=== PATIENT | female | born 1930 | race Caucasian/White ===

== ENCOUNTER 2017-03-15 16:32 | Inpatient (IN) ==
--- NOTE | 2017-03-15 17:19 | XRay Report ---
XR chest 1V portable Indication: Fall Comparison: Chest x-ray dated November 16, 2016 Technique: Single frontal view of the chest. Findings: The cardiomediastinal silhouette is stable in configuration. Heart remains borderline prominent. Chronic change of the lungs without focal consolidation, pleural effusion, or pneumothorax. Visualized osseous and surrounding soft tissue structures appear grossly unchanged. Diffuse osteopenia and vertebroplasty change of a mid thoracic vertebral body. Cervical fusion hardware partially visualized. IMPRESSION: Stable chest x-ray without acute cardiopulmonary process demonstrated. PROCEDURE INTERPRETED AT [facility] DEPARTMENT OF RADIOLOGY Final Report Signed by: Dr Esau Johnson
--- NOTE | 2017-03-15 17:21 | XRay Report ---
XR hip 2v w pelvis LT Indication: Fall, left hip pain Comparison: None Technique: Single frontal view of the pelvis as well as frontal and lateral views of the left hip Findings: Right hip prosthesis. Diffuse osteopenia. Degenerative change of the lower lumbar spine and left SI joint. Acute fracture involving the left femoral neck with foreshortening and varus deformity. Bowel gas obscures visualization of the sacrum. IMPRESSION: Acute fracture involving the left femoral neck with foreshortening and varus deformity. PROCEDURE INTERPRETED AT [facility] DEPARTMENT OF RADIOLOGY Final Report Signed by: Dr Esau Johnson
[2017-03-15 17:27] LABS: Basophils % 0.1 % (0.0-0.8); Eosinophils # 0.2 10*3/uL (0.0-0.87); Eosinophils % 1.3 % (0.00-10.9); Hematocrit 44.8 VOL% (35.7-47.0); Immature Granulocytes % 0.7 %; Lymphocytes # 2.4 10*3/uL (1.4-4.0); Lymphocytes % 15.7 % (21.3-54.2); Mean Corpuscular HGB Conc 33.5 GM/DL (32-36); Mean Corpuscular Hemoglobin 29 PG (27-34); Mean Corpuscular Volume 86.8 FL (87-102); Mean Platelet Volume 9.4 FL (9.6-12.0); Monocytes # 0.9 10*3/uL (0.11-0.8); Monocytes % 5.7 % (1.7-12.7); Neutrophils # 11.5 10*3/uL (1.4-7.4); Neutrophils % 76.5 % (38.7-73.9); Platelet Count 194 T/CUMM (130-400); Red Blood Count 5.16 MC/CUMM (3.8-5.5); Red Cell Distribution Width 13.4 % (9.3-17.3)
--- NOTE | 2017-03-15 17:28 | Emergency Department Note ---
João Rosenthal Mantricia, am scribing for, and in the presence of, Aashish Reyes MD 17:03. IEric Phillip K, MD, personally performed the services described in this documentation, ascribed by Jayce Moyer in my presence, and it is both accurate and complete [id number] . Arrival - Arrival Chief Complaint: Fall Stated Complaint: fall ED Nursing Triage Note: Brought in per EMS from home s/p fall x 2 today. c/o left hip pain. Obvious shortening and rotation noted left leg. +pedal pulse left foot. Skin warm/dry to touch. Mode of Arrival: Stretcher Limitations: No Limitations Source: Patient - History of Present Illness HPI Narrative: Pt is an 86 y/o white female arriving to ED by EMS with c/o left hip pain s/p falls that happened today. Family states that pt woke up from a nap dizzy and fell at home. While trying to get pt to ED, she fell again. Family states that pt did not hit her head or LOC. Pt has a PMHx of dementia and Alzheimer's and has had a right partial hip replacement 3 months ago. She also has been experiencing frequent urination every 30 minutes. Pt reports that "this is the worst she's hurt before." She nor family reports no other complaints to ED. Onset (ago): day(s) Date of Last Menstrual Period: PM Allergies/Adverse Reactions: Allergies Allergy/AdvReac Type Severity Reaction Status Date / Time Sulfa (Sulfonamide Allergy ITCHING Verified 03/15/17 16:53 Antibiotics) codeine AdvReac Agitated Verified 03/15/17 16:53 Home Medications: Home Medications Medication Instructions Recorded Confirmed Type Fludrocortisone [Florinef] 0.1 mg PO DAILY 04/26/16 11/09/16 History Levothyroxine Tab [Synthroid Tab] 50 mcg PO DAILY 04/26/16 11/09/16 History Midodrine [Proamatine] 5 mg PO DAILY 04/26/16 11/09/16 History Potassium Chloride [Klor-Con] 20 meq PO TID 04/26/16 11/09/16 History Travoprost 0.004% Oph Soln 1 drop BOTH EYES BEDTIME 04/26/16 11/09/16 History [Travatan Z] OLANZapine TAB [ZyPREXA Tab] 5 mg PO BEDTIME #60 tablet 05/09/16 11/09/16 Rx Albuterol Sulfate [Proair HFA] 2 puffs INH Q6HR PRN 11/09/16 11/09/16 History Brimonidine/Timolol Oph Soln 1 drop RIGHT EYE RT Q12H 11/09/16 11/09/16 History [Combigan] Cyproheptadine Tab [Periactin Tab] 4 mg PO TID 11/09/16 11/09/16 History Donepezil [Aricept] 5 mg PO BEDTIME 11/09/16 11/09/16 History Gabapentin 100 mg PO BID 11/09/16 11/09/16 History cycloSPORINE OPH EMUL [Restasis] 1 drop BOTH EYES RT Q12H 11/09/16 11/09/16 History Acetaminophen Tab [Tylenol Tab] 325 mg PO Q4H PRN #0 tablet 11/17/16 Rx Docusate Sodium Cap [Colace Cap] 100 mg PO BID PRN #0 capsule 11/17/16 Rx Fondaparinux [Arixtra] 2.5 mg SUBCUT Q24H #7 syringe 11/17/16 Rx Levofloxacin Tab [Levaquin Tab] 750 mg PO DAILY #7 tablet 11/17/16 Rx Metoprolol Tartrate Tab [Lopressor 50 mg PO BID #60 tablet 11/17/16 Rx Tab] Pantoprazole Tab [Protonix Tab] 40 mg PO DAILY #30 tablet 11/17/16 Rx amLODIPine [Norvasc] 2.5 mg PO DAILY #30 tablet 11/17/16 Rx Review of System - Review of System 12 point system: reviewed and no additional remarkable complaints except as stated - Review of System Constitutional: Absent: chills, diaphoresis Eyes: Absent: discharge, pain Head/Ears/Nose/Throat: Absent: earache, epistaxis Respiratory: Absent: cough, respiratory distress, wheezing Cardiovascular: Absent: chest pain, palpitations Gastrointestinal: Absent: abdominal pain, nausea, vomiting, diarrhea Genitourinary female: Present: frequency. Absent: abnormal menses, dysuria Musculoskeletal: Present: other (left hip pain s/p 2 falls). Absent: arm pain, back pain, leg pain, neck pain Skin: Absent: rash, lesions Neurological: Present: weakness. Absent: headache Medical,Surgical,& Family Hx - Medical History Cardio: History of: Hypertension Psychological: History of: Behavior Problems, Depression, Psychiatric Problems ( visual hallucinations aeb seeing people coming in her house and talking to) No history of: Violent Behavior Neurology: History of: Dementia, TIA Endocrine: History of: Dyslipidemia Genitourinary: History of: Recurring Urinary Tract Infections Gastrointestinal: History of: GERD - Surgical History Orthopedic Surgeries: Surgical HX of;: Total Hip Replacement (right), Total Knee Replacement - Social History Smoking Status: Never smoker Frequency of Alcohol Use: None Type of Drug Use: None Exam Vital Signs: Vital Signs Temperature 98.4 F 03/15/17 16:32 Pulse Rate 87 03/15/17 16:32 Respiratory Rate 18 03/15/17 16:32 Blood Pressure 212/132 03/15/17 16:32 O2 Sat by Pulse Oximetry 97 03/15/17 16:32 - General General appearance: alert, in no apparent distress - Head Head exam: Present: atraumatic, normocephalic, normal inspection - Eye Eye exam: Present: normal appearance, PERRL, EOMI - ENT ENT exam: Present: normal exam, normal oropharynx, mucous membranes moist, TM's normal bilaterally, normal external ear exam - Neck Neck exam: Present: normal inspection, full ROM, trachea midline. Absent: tenderness - Chest Chest inspection: Present: normal inspection, symmetric chest wall rise. Absent : tenderness - Respiratory Respiratory exam: Present: normal lung sounds bilaterally - Cardiovascular Cardiovascular exam: Present: regular rate, normal rhythm, normal heart sounds - Abdominal Exam Abdominal exam: Present: soft, normal bowel sounds. Absent: distention, tenderness, guarding, rebound - Expanded Lower Left Lower Hip/Pelvis exam: Present: tenderness (TTP) Lower leg exam: Present: other (short in radiation) - Back Exam Back exam: Present: normal inspection, full ROM. Absent: tenderness - Neurological Exam Neurological exam: Present: alert, oriented X3, CN II-XII intact, normal gait, reflexes normal - Psychiatric Psychiatric exam: Present: normal affect, normal mood - Skin Skin exam: Present: warm, dry, intact, normal color Course Course Narrative: Patient discussed with the hospitalist. Patient also discussed with Dr. Horn who is on-call for orthopedic. Disposition Clinical Impression: Subcapital fracture of neck of left femur, Dementia Case discussed with: patient, patient's family Disposition: Still a Patient Condition: Guarded Additional Instructions: Admit to the hospitalist and consult orthopedics.
[2017-03-15 17:43] LABS: Calcium 9.1 MG/DL (8.5-10.1); Potassium 3.5 MMOL/L (3.5-5.1)
--- NOTE | 2017-03-15 17:56 | Hospitalist History & Physical ---
Assessment and Plan - Time spent with patient Time spent with patient: Greater than 30 minutes (1) Fracture of femoral neck, left Status: Acute Assessment and plan: Have consulted orthopedics to assist with her care and repair. At this time she is medically acceptable for the OR and may proceed however she is at somewhat increased risk secondary to age and comorbidities. Current Visit: Yes (2) Orthostasis Status: Chronic Assessment and plan: According to the family patient has significant orthostasis where her blood pressures may be greater than 200 and dropped to 80. We will continue her current medical regimen and watch her vital signs closely. Current Visit: Yes (3) Leukocytosis Status: Acute Assessment and plan: She has a leukocytosis at this time without any evidence of infection. Urinalysis is currently pending we will treat as indicated and follow-up CBC in the a.m. Current Visit: Yes (4) Dementia Status: Chronic Assessment and plan: Patient has dementia. Continue current medical regimen. Current Visit: Yes (5) Hypothyroidism Status: Chronic Assessment and plan: Continuing her current thyroid replacement therapy. T4 TSH pending. Current Visit: Yes (6) HTN (hypertension) Status: Chronic Assessment and plan: She is slightly hypertensive this evening. This may be partially exacerbated by pain which we will attempt to control. Also with history of orthostasis we may need to allow permissive hypertension to avoid significant drops in recurrent syncopal episodes. Current Visit: No Qualifiers: Hypertension type: essential hypertension Qualified Code(s): I10 - Essential (primary) hypertension (7) Paroxysmal atrial fibrillation Status: Chronic Assessment and plan: She is currently in sinus rhythm. We will continue to follow. Current Visit: No History of Present Illness Chief complaint: Fall, hip pain History of present illness: Ms. Modi is a 86 year old white female with a history of paroxysmal atrial fibrillation, orthostatic hypotension, dementia of Alzheimer's type who states that she fell at home twice earlier today and complains of left hip pain. She became dizzy just prior but had no loss of consciousness or head injury. She denies any fever, chills, chest pain, shortness breath, palpitations, abdominal pain, nausea, vomiting, diarrhea, constipation, melena, hematochezia, hematemesis, dysuria hematuria. She was seen in our emergency department and found to have a left hip fracture and is now admitted to the hospitalist service with orthopedic consultation. She currently lives with her daughter and her and has stay home health visits. Her primary care provider is Dr. Oscar Correa. [employer] Dr. Carlos John. Home Medications Medication Instructions Recorded Confirmed Type Fludrocortisone [Florinef] 0.1 mg PO DAILY 04/26/16 11/09/16 History Levothyroxine Tab [Synthroid Tab] 50 mcg PO DAILY 04/26/16 11/09/16 History Midodrine [Proamatine] 5 mg PO DAILY 04/26/16 11/09/16 History Potassium Chloride [Klor-Con] 20 meq PO TID 04/26/16 11/09/16 History Travoprost 0.004% Oph Soln 1 drop BOTH EYES BEDTIME 04/26/16 11/09/16 History [Travatan Z] OLANZapine TAB [ZyPREXA Tab] 5 mg PO BEDTIME #60 tablet 05/09/16 11/09/16 Rx Albuterol Sulfate [Proair HFA] 2 puffs INH Q6HR PRN 11/09/16 11/09/16 History Brimonidine/Timolol Oph Soln 1 drop RIGHT EYE RT Q12H 11/09/16 11/09/16 History [Combigan] Cyproheptadine Tab [Periactin Tab] 4 mg PO TID 11/09/16 11/09/16 History Donepezil [Aricept] 5 mg PO BEDTIME 11/09/16 11/09/16 History Gabapentin 100 mg PO BID 11/09/16 11/09/16 History cycloSPORINE OPH EMUL [Restasis] 1 drop BOTH EYES RT Q12H 11/09/16 11/09/16 History Acetaminophen Tab [Tylenol Tab] 325 mg PO Q4H PRN #0 tablet 11/17/16 Rx Docusate Sodium Cap [Colace Cap] 100 mg PO BID PRN #0 capsule 11/17/16 Rx Fondaparinux [Arixtra] 2.5 mg SUBCUT Q24H #7 syringe 11/17/16 Rx Levofloxacin Tab [Levaquin Tab] 750 mg PO DAILY #7 tablet 11/17/16 Rx Metoprolol Tartrate Tab [Lopressor 50 mg PO BID #60 tablet 11/17/16 Rx Tab] Pantoprazole Tab [Protonix Tab] 40 mg PO DAILY #30 tablet 11/17/16 Rx amLODIPine [Norvasc] 2.5 mg PO DAILY #30 tablet 11/17/16 Rx Allergies Allergy/AdvReac Type Severity Reaction Status Date / Time Sulfa (Sulfonamide Allergy ITCHING Verified 03/15/17 16:53 Antibiotics) codeine AdvReac Agitated Verified 03/15/17 16:53 Medical,Surgical,& Family Hx - Medical History Cardio: History of: Cardiac Dysrhythmia (History of paroxysmal atrial fibrillation), Hypertension, Cardiovascular Problems (Daughter reports significant orthostasis) Psychological: History of: Behavior Problems, Depression, Psychiatric Problems ( visual hallucinations aeb seeing people coming in her house and talking to) No history of: Violent Behavior Neurology: History of: Dementia, TIA Endocrine: History of: Dyslipidemia Genitourinary: History of: Recurring Urinary Tract Infections Gastrointestinal: History of: GERD - Surgical History Neurologic Surgeries: Surgical HX of: Neurologic Surgery (Daughter reports multiple back surgeries in the past) Orthopedic Surgeries: Surgical HX of;: Total Hip Replacement (right), Total Knee Replacement - Family History Family History: noncontributory - Social History Smoking Status: Never smoker Frequency of Alcohol Use: None Type of Drug Use: None Lives With:: Children 12 point system: reviewed and no additional remarkable complaints except as stated Exam - Constitutional Vitals: Period Temp Pulse Resp BP Sys/North Pulse Ox Last 24 Hr 98.4 F 87 18 212/132 97 General appearance: no acute distress - Head Head exam: Present: normocephalic, atraumatic - Eye Eye exam: Present: EOMI. Absent: scleral icterus Pupils: Present: DOM - ENT ENT exam: Present: normal oropharynx - Neck Neck exam: Present: normal inspection. Absent: lymphadenopathy, meningismus, tenderness, thyromegaly - Respiratory Respiratory exam: Present: clear to auscultation bilaterally. Absent: rales, rhonchi, wheezes - Cardiovascular Cardiovascular exam: Present: regular rate and rhythm, systolic murmur (Soft 2/ 6 systolic murmur at the right upper sternal border). Absent: carotid bruit, gallop, JVD, tachycardia - GI/Abdominal GI/Abdominal exam: Present: normal bowel sounds, soft. Absent: mass, tenderness - Extremities Exam Extremities exam: Present: normal capillary refill, other (Tender about the left hip, externally rotated, and foreshortened). Absent: calf tenderness - Back Exam Back exam: Present: normal inspection - Neurological Exam Neurological exam: Present: alert, CN II-XII intact, other (Oriented to person and place). Absent: motor sensory deficit - Psychiatric Psychiatric exam: Present: flat affect. Absent: agitated, anxious - Skin Skin exam: Present: warm, dry. Absent: erythema, rash Results - Labs CBC & BMP: 03/15/17 17:18 03/15/17 17:18 Lab Results: I have reviewed the past 24 hour labs - EKG EKG shows: sinus rhythm - Diagnostic Findings Procedure: Chest x-ray: report reviewed by me
[2017-03-15] MEDS ORDERED: DOCUSATE SODIUM 100 MG CAPSULE PO PRN (19:18)
[2017-03-15] MEDS ORDERED: ALBUTEROL 2.5 MG/3 ML NEB RESP TX PRN (19:18)
[2017-03-15] MEDS ORDERED: MORPHINE 2 MG/1 ML SYRINGE IV PRN (19:18)
[2017-03-15] MEDS ORDERED: ONDANSETRON 4 MG/2 ML VIAL IV PRN (19:18)
[2017-03-15 19:43] LABS: Risk Ratio 5.82; Thyroid Stimulating Hormone 1.76 uIU/ml (0.358-3.74); VLDL CHOLESTEROL 80.4 MG/DL
[2017-03-15] MEDS: SODIUM CHLORIDE 0.9% 1,000 ML IV SCH (20:15)
[2017-03-15] MEDS: ASPIRIN EC 81 MG TABLET PO SCH (20:36)
[2017-03-15] MEDS ORDERED: OLANZapine 2.5 MG TABLET PO SCH (21:00)
[2017-03-15] MEDS: DONEPEZIL 5 MG TABLET PO SCH (21:40)
[2017-03-15] MEDS: GABAPENTIN 100 MG CAPSULE PO SCH (21:40)
[2017-03-15] MEDS: OLANZapine 2.5 MG TABLET PO SCH (21:40)
[2017-03-15] MEDS: METOPROLOL TARTRATE 50 MG TABLET PO SCH (21:40)
[2017-03-15] MEDS: BRIMONIDINE/TIMOLOL OPH SOLN 5 ML BOTTLE RIGHT EYE SCH (21:40)
[2017-03-15] MEDS: POTASSIUM CHLORIDE 20 MEQ PACK PO SCH (21:40)
[2017-03-15] MEDS: CYPROHEPTADINE 4 MG TABLET PO SCH (21:40)
[2017-03-15] MEDS: cycloSPORINE OPH EMUL 1 VIAL BOTH EYES SCH (21:43)
[2017-03-15] MEDS: TRAVOPROST 0.004% OPH SOLN 2.5 ML BOTTLE BOTH EYES SCH (21:54)
--- NOTE | 2017-03-15 23:16 | Orthopedic Consult Note ---
History of Present Illness Chief complaint: Left hip pain History of present illness: Ms. Modi is a 86 year old female with history of Alzheimer's dementia. Her daughter is at her bedside. She is seen on the hospital floor. States that she was walking with a walker this morning when she sustained a fall. He is unsure if her leg gave out on her prior to the fall. Has a history of a recent fall resulting right femoral neck fracture in October 2016 underwent right hip pinning of positive 11/14/[address] Frias. She denies numbness or tingling. complains of left hip pain, worse with motion and alleviated with rest. Daughter states that she has a history of orthostatic hypotension, which she believes may have contributed to her fall Home Medications Medication Instructions Recorded Confirmed Type Fludrocortisone [Florinef] 0.1 mg PO DAILY 04/26/16 03/15/17 History Levothyroxine Tab [Synthroid Tab] 50 mcg PO QAM 04/26/16 03/15/17 History Midodrine [Proamatine] 5 mg PO DAILY 04/26/16 03/15/17 History Potassium Chloride [Klor-Con] 20 meq PO TID 04/26/16 03/15/17 History Travoprost 0.004% Oph Soln 1 drop BOTH EYES BEDTIME 04/26/16 03/15/17 History [Travatan Z] Brimonidine/Timolol Oph Soln 1 drop RIGHT EYE RT Q12H 11/09/16 03/15/17 History [Combigan] Cyproheptadine Tab [Periactin Tab] 4 mg PO TID 11/09/16 03/15/17 History Donepezil [Aricept] 5 mg PO BEDTIME 11/09/16 03/15/17 History Gabapentin 100 mg PO BID 11/09/16 03/15/17 History cycloSPORINE OPH EMUL [Restasis] 1 drop BOTH EYES RT Q12H 11/09/16 03/15/17 History Metoprolol Tartrate Tab [Lopressor 50 mg PO BID #60 tablet 11/17/16 03/15/17 Rx Tab] Pantoprazole Tab [Protonix Tab] 40 mg PO DAILY #30 tablet 11/17/16 03/15/17 Rx amLODIPine [Norvasc] 2.5 mg PO DAILY #30 tablet 11/17/16 03/15/17 Rx Aspirin EC Tab 81 mg PO QPM 03/15/17 03/15/17 History OLANZapine TAB [ZyPREXA Tab] 2.5 mg PO BEDTIME 03/15/17 03/15/17 History Allergies Allergy/AdvReac Type Severity Reaction Status Date / Time Sulfa (Sulfonamide Allergy ITCHING Verified 03/15/17 16:53 Antibiotics) codeine AdvReac Agitated Verified 03/15/17 16:53 12 point system: reviewed and no additional remarkable complaints except as stated Medical,Surgical,& Family Hx - Medical History Cardio: History of: Cardiac Dysrhythmia (History of paroxysmal atrial fibrillation), Hypertension, Cardiovascular Problems (Daughter reports significant orthostasis) Psychological: History of: Behavior Problems, Depression, Psychiatric Problems ( visual hallucinations aeb seeing people coming in her house and talking to) No history of: Violent Behavior Neurology: History of: Dementia, TIA Endocrine: History of: Dyslipidemia Genitourinary: History of: Recurring Urinary Tract Infections Gastrointestinal: History of: GERD - Surgical History Neurologic Surgeries: Surgical HX of: Neurologic Surgery (Daughter reports multiple back surgeries in the past) Orthopedic Surgeries: Surgical HX of;: Total Hip Replacement (right), Total Knee Replacement - Social History Smoking Status: Never smoker Frequency of Alcohol Use: None Type of Drug Use: None Lives With:: Children Functional capacity: uses cane/walker Exam - Constitutional Vitals: Period Temp Pulse Resp BP Sys/North Pulse Ox Last 24 Hr 98.3 F-98.7 F 81-90 16-18 144-212/81-132 92-97 General appearance: no acute distress, under weight - Head Head exam: Present: normal inspection, normocephalic, atraumatic - Eye Eye exam: Present: EOMI Pupils: Present: DOM - ENT ENT exam: Present: normal exam - Neck Neck exam: Present: normal inspection. Absent: tenderness - Respiratory Respiratory exam: Absent: accessory muscle use, wheezes - Cardiovascular Cardiovascular exam: Present: regular rate and rhythm - GI/Abdominal GI/Abdominal exam: Absent: distended, firm - Expanded Left Lower Hip exam: Present: deformity (Shortening), external rotation, shortening. Absent: normal inspection Upper Leg exam: Present: normal inspection Knee exam: Present: normal inspection Lower leg exam: Present: normal inspection Ankle exam: Present: normal inspection, full ROM Foot/Toe exam: Present: normal inspection, full ROM Neuro vascular tendon exam: Absent: abnormal cap refill, motor deficit, sensory deficit Right Lower Hip exam: Present: normal inspection Knee exam: Present: normal inspection Lower leg exam: Present: normal inspection Ankle exam: Present: normal inspection, full ROM Foot/Toe exam: Present: normal inspection, full ROM Neuro vascular tendon exam: Absent: decreased fine/light touch, motor deficit, sensory deficit - Neurological Exam Neurological exam: Present: alert (Was not aware that she was in the hospital), CN II-XII intact - Psychiatric Psychiatric exam: Present: normal affect, normal mood - Skin Skin exam: Present: normal color Results - Labs CBC & BMP: 03/15/17 17:18 03/15/17 17:18 Lab Results: I have reviewed the past 24 hour labs - Diagnostic Findings Procedure: X-ray: image reviewed by me, report reviewed by me Assessment and Plan (1) Fracture of femoral neck, closed Status: Acute Assessment and plan: Discussed her displaced femoral neck fracture for the patient and the daughter. Discussed treatment options including nonoperative treatment versus surgical intervention. Recommend proceeding with surgical intervention because without surgery, she will not be able to bear weight on her left lower extremity. Discussed that due to the displacement that the fracture is not amenable to fixation due to the high risk for failure and nonunion resulting in needing for further surgery in the future. Recommend proceeding with left hip arthroplasty which most likely be a hemiarthroplasty and can be determined at the time of surgery. Discussed the risks and benefits of hip hemiarthroplasty in detail including but not limited to the risk of infection, bleeding, blood clots, blood clots in lungs, need for blood transfusion, neurovascular injury but local remote, hardware failure, shortening, dislocation, leg length inequality, need for further surgery, fracture, and other unforeseen complications. Also discussed the risk of anesthesia including heart attack, stroke, . All questions were answered to their satisfaction. Consent will be obtained by the daughter. Left hip was verified as correct site with the patient and the daughter and marked with yes and my initials. She is cleared by medicine for surgery and will be evaluated by the anesthesiologist this evening. Plan for left hip arthroplasty in the morning. Orders: N.p.o. after midnight, consent for left hip arthroplasty Current Visit: No Qualifiers: Encounter type: initial encounter Laterality: right Qualified Code(s): S72.001A - Fracture of unspecified part of neck of right femur, initial encounter for closed fracture (2) Dementia Status: Chronic Current Visit: Yes
[2017-03-16 00:49] LABS: Apearance,Urine Slightly Hazy (Clear); Bilirubin,Urine Negative (Negative); Blood, Urine Negative (Negative); Glucose,Urine (UA) Negative (Negative); Ketones,Urine Negative (Negative); Nitrite,Urine Negative (Negative); Protein,Urine Negative; RBC,Urine 1 /HPF (0-4); Renal Epithelial Cells,Urine Occasional /HPF (<1); Urine Color Straw (Yellow); Urine Specific Gravity 1.005 (1.001-1.035); Urine Urobilinogen < 2.0 EU/DL (0.2-1.0); WBC,Urine <1 /HPF (0-6)
[2017-03-16] MEDS: SODIUM CHLORIDE 0.9% 1,000 ML IV SCH ×3 (03:11→18:55)
[2017-03-16 06:24] LABS: Basophils % 0.1 % (0.0-0.8); Eosinophils # 0.3 10*3/uL (0.0-0.87); Eosinophils % 2.8 % (0.00-10.9); Hematocrit 34.5 VOL% (35.7-47.0); Immature Granulocytes % 0.4 %; Immature Granulocytes Absolute 0.04 #; Lymphocytes # 2.7 10*3/uL (1.4-4.0); Lymphocytes % 26.7 % (21.3-54.2); Mean Corpuscular HGB Conc 33.3 GM/DL (32-36); Mean Corpuscular Hemoglobin 29 PG (27-34); Mean Corpuscular Volume 87.6 FL (87-102); Mean Platelet Volume 9.7 FL (9.6-12.0); Monocytes # 0.6 10*3/uL (0.11-0.8); Monocytes % 6.2 % (1.7-12.7); Neutrophils # 6.4 10*3/uL (1.4-7.4); Neutrophils % 63.8 % (38.7-73.9); Platelet Count 158 T/CUMM (130-400); Red Cell Distribution Width 13.4 % (9.3-17.3)
[2017-03-16 06:32] LABS: Hemoglobin 11.5 GM/DL (12.0-16.0); Red Blood Count 3.94 MC/CUMM (3.8-5.5)
[2017-03-16 06:49] LABS: Calcium 7.8 MG/DL (8.5-10.1); Osmolality,Calculated 275.4 MOS/KG (273-304); Potassium 3.4 MMOL/L (3.5-5.1)
[2017-03-16] MEDS: BRIMONIDINE/TIMOLOL OPH SOLN 5 ML BOTTLE RIGHT EYE SCH ×2 (07:47→20:11)
[2017-03-16] MEDS: cycloSPORINE OPH EMUL 1 VIAL BOTH EYES SCH ×2 (07:48→20:11)
[2017-03-16] MEDS: PANTOPRAZOLE 40 MG TABLET PO SCH (08:58)
[2017-03-16] MEDS: amLODIPine 2.5 MG TABLET PO SCH (08:58)
[2017-03-16] MEDS: METOPROLOL TARTRATE 50 MG TABLET PO SCH ×2 (08:58→20:11)
[2017-03-16] MEDS ORDERED: VANCOMYCIN 1,000 MG VIAL ONE (09:12)
[2017-03-16] MEDS ORDERED: ROPIVACAINE 0.5% 30 ML VIAL ONE (09:12)
[2017-03-16] MEDS ORDERED: MORPHINE 10 MG/10 ML VIAL ONE (09:16)
[2017-03-16] MEDS ORDERED: KETOROLAC 30 MG/1 ML VIAL ONE (09:16)
[2017-03-16] MEDS ORDERED: TRANEXAMIC ACID 1,000 MG/10 ML VIAL IV ONE (09:32)
--- NOTE | 2017-03-16 09:32 | Hospitalist Progress Note ---
<Eduard Alejandro - Last Filed: 03/16/17 09:30> Assessment and Plan (1) Fracture of femoral neck, left Status: Acute Assessment and plan: Patient is scheduled for repair of the left femoral neck this a.m. per orthopedics. Current Visit: Yes (2) Hypokalemia Status: Acute Assessment and plan: Potassium today noted at 3.4. We will start the potassium replacement protocol , correct the deficit, and recheck CMP in a.m. Current Visit: No (3) HTN (hypertension) Status: Chronic Assessment and plan: Blood pressures have been stable thus far, we will continue to monitor. Current Visit: No Qualifiers: Hypertension type: essential hypertension Qualified Code(s): I10 - Essential (primary) hypertension Hospitalist: Subjective Interval history: Patient seen and examined, chart reviewed. No significant overnight events. The patient is scheduled to go to the OR today for left hip repair per orthopedics. Exam - Constitutional Vitals: Period Temp Pulse Resp BP Sys/North Pulse Ox Last 24 Hr 98.0 F-98.8 F 67-90 16-20 117-212/61-132 92-97 General appearance: normal weight, no acute distress - Head Head exam: Present: normal inspection, normocephalic - Eye Eye exam: Present: EOMI, conjunctival injection Pupils: Present: DOM, normal accommodation - ENT ENT exam: Present: normal exam, normal external ear exam, normal oropharynx - Neck Neck exam: Present: normal inspection. Absent: lymphadenopathy, meningismus, tenderness, thyromegaly - Respiratory Respiratory exam: Present: clear to auscultation bilaterally. Absent: rales, rhonchi, stridor, wheezes - Cardiovascular Cardiovascular exam: Present: regular rate and rhythm. Absent: carotid bruit, diastolic murmur, gallop, JVD, rubs, systolic murmur - GI/Abdominal GI/Abdominal exam: Present: normal bowel sounds, soft - Extremities Exam Extremities exam: Present: other (deformity to left hip noted.) - Expanded Left Lower Hip exam: Present: swelling, tenderness, deformity - Back Exam Back exam: Present: normal inspection - Neurological Exam Neurological exam: Present: alert, altered - Psychiatric Psychiatric exam: Present: normal affect, normal mood - Skin Skin exam: Present: normal color, warm, dry Results - Labs CBC & BMP: 03/16/17 06:03 03/16/17 06:03 Lab Results: I have reviewed the past 24 hour labs <Elba Soares - Last Filed: 03/16/17 16:51> Hospitalist: Subjective Interval history: Patient seen and examined independently of GAYLE Alejandro, agree with assessment and plan as documented. Seen today after surgery. Sleepy but doing well. Denies pain. Exam - Constitutional Vitals: Period Temp Pulse Resp BP Sys/North Pulse Ox Last 24 Hr 97 F-99 F 67-90 14-22 94-208/52-131 7-100 Results - Labs CBC & BMP: 03/16/17 06:03 03/16/17 06:03
--- NOTE | 2017-03-16 09:36 | EKG Report ---
Stationary ECG Study 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
[2017-03-16] MEDS ORDERED: ONDANSETRON 4 MG/2 ML VIAL ONE (09:39)
[2017-03-16] MEDS ORDERED: GLYCOPYRROLATE 0.4 MG/2 ML VIAL ONE (09:39)
[2017-03-16] MEDS ORDERED: ROCURONIUM 100 MG/10 ML VIAL IV ONE (09:39)
[2017-03-16] MEDS ORDERED: hydrALAZINE 20 MG/1 ML VIAL ONE (09:39)
[2017-03-16] MEDS ORDERED: HYDROCORTISONE 100 MG VIAL ONE (09:39)
[2017-03-16] MEDS ORDERED: PROPOFOL 200 MG/20 ML VIAL IV ONE (09:39)
[2017-03-16] MEDS ORDERED: LIDOCAINE 2% 5 ML VIAL ONE (09:39)
[2017-03-16] MEDS ORDERED: ceFAZolin 1,000 MG VIAL ONE (10:07)
[2017-03-16] MEDS ORDERED: TISSUE ADHESIVE 1 EACH APPLICATOR TOP ONE (11:48)
--- NOTE | 2017-03-16 12:28 | Operative Note ---
Date of procedure: 03/16/17 Pre-op diagnosis: Displaced left femoral neck fracture Post-op diagnosis: same Procedure: After adequate anesthesia was obtained, patient was placed on the [place] table. Left leg was then prepped and draped in usual sterile orthopedic fashion. Timeout was taken indicating correct patient, site, surgery, that all his meds and implants were available and antibiotics were given preoperatively. Fluoroscopy utilizes prior to prepping and draping to confirm position the left femoral neck fracture A 10 cm incision was made 3 cm lateral and 2 cm distal to the ASIS. Careful dissection was carried down to the fascial layer. This superficial lateral femoral cutaneous nerve branch was visualized and protected throughout the surgery. Fascia was split in line with the incision. Anterior interval was identified. Cobra retractor was placed around superior femoral neck. the lateral circumflex vessels were identified and cauterized. A cobra was then placed in the inferior neck. Reflected head of rectus was elevated off the femoral capsule. Anterior acetabular retractor was carefully placed. T capsulotomy incision was performed and superior and inferior limbs were tagged with Tycron suture. Cobra retractors in place around the femoral neck. Fracture was identified. Femoral neck length was sized with the template an oscillating saw used for the femoral neck cut. Femoral head was removed and sized on the back table to a 46 mm head. Ligamentum teres was excised. Fracture fragments removed from within the acetabulum. The leg was then externally rotated, extended, and adducted. Posterior capsule was elevated off of the undersurface of the greater trochanter to allow for adequate visualization. Canal finder was utilized to gain entrance to the femoral canal. Femoral canal was reamed on hand up to a size 3, and lateral reamer used. Femur was then broached in stepwise fashion up to a size 3 broach. AP and lateral x-rays were taken indicating excellent fit and fill. Calcar was then plained. A standard offset neck and a +1.5x46 head was then applied and the hip was reduced. Fluoroscopic images were taken in the lesser trochanter height was restored to the equivalent of the position from an AP pelvis x-ray back in October prior to her left hip fracture. Trial implants were then removed and final implants inserted. The hip was reduced and taken through full range of motion. The hip was not dislocatable. Fluoroscopic images showed excellent fit and fill appropriate size and position of the implants. Local injection was then performed with a combination of 30 cc of 0.5% ropivacaine, 10 mg Duramorph, 30 mg Toradol, 20 cc injectable normal saline. A total of 40 cc of this concoction was utilized for injection into the periosteum , femoral capsule, very muscular tissue, and subcutaneous tissues The hip and incision were then irrigated with normal saline. Vancomyocin powder was then placed inside the joint and the capsule was closed with a combination of #5 and #2 Tycron suture in an anatomic alevism of the joint capsule. Vancomycin powder then placed in the deep layer and the fascia was closed with running #1 Vicryl. Vancomycin then placed in the subcutaneous layer and the subcutaneous layer was closed with combination of 0 and 3-0 Vicryl. Subcuticular stitch performed with 3-0 V-loc. Dermabond applied incision. Dressing applied with silver impregnated dressing. Patient was then awoken by anesthesia and taken the PACU in stable condition Implants: Depuy metal on polyethylene hemiarthroplasty +1.5 x 46mm femoral head DePuy [place] femoral stem size 3 STD Surgeon / Physician: Jack Horn Estimated blood loss: other (200ml) Specimens: other (femoral head) Condition: stable Disposition: PACU Results - Labs CBC & BMP: 03/16/17 06:03 03/16/17 06:03 Discharge Plan - Discharge Medications No Action Potassium Chloride [Klor-Con] 20 meq PO TID Levothyroxine Tab [Synthroid Tab] 50 mcg PO QAM Midodrine [Proamatine] 5 mg PO DAILY Fludrocortisone [Florinef] 0.1 mg PO DAILY Travoprost 0.004% Oph Soln [Travatan Z] 1 drop BOTH EYES BEDTIME Gabapentin 100 mg PO BID Donepezil [Aricept] 5 mg PO BEDTIME Brimonidine/Timolol Oph Soln [Combigan] 1 drop RIGHT EYE RT Q12H cycloSPORINE OPH EMUL [Restasis] 1 drop BOTH EYES RT Q12H OLANZapine TAB [ZyPREXA Tab] 2.5 mg PO BEDTIME Cyproheptadine Tab [Periactin Tab] 4 mg PO TID Metoprolol Tartrate Tab [Lopressor Tab] 50 mg PO BID #60 tablet Pantoprazole Tab [Protonix Tab] 40 mg PO DAILY #30 tablet amLODIPine [Norvasc] 2.5 mg PO DAILY #30 tablet Aspirin EC Tab 81 mg PO QPM - Follow Up or Referral - Forms/Instructions
--- NOTE | 2017-03-16 12:34 | XRay Report ---
Exam: XR hip 2V LT Date: 03/16/2017 12:00 AM Comparison: 03/15/2017 Indication: Left hip replacement Technique:[Approximately, 19.7 seconds documented. 4 films were obtained. Films were obtained in the anterior and lateral projection.] Findings: Satisfactory interval left total hip replacement. Impression: Satisfactory interval left total hip replacement. PROCEDURE INTERPRETED AT [facility] DEPARTMENT OF RADIOLOGY Final Report Signed by: Dr. Cyn Daley
[2017-03-16] MEDS ORDERED: SEVOFLURANE 1 UNIT/15 MINUTE INH ONE (12:35)
[2017-03-16] MEDS ORDERED: ACETAMINOPHEN 1,000 MG/100 ML VIAL IV ONE (12:36)
[2017-03-16] MEDS ORDERED: fentaNYL 100 MCG/2 ML VIAL ONE (12:36)
[2017-03-16] MEDS ORDERED: ePHEDrine 50 MG/ML AMP ONE (12:36)
[2017-03-16] MEDS ORDERED: LACTATED RINGERS 1,000 ML IV ONE (12:36)
--- NOTE | 2017-03-16 13:04 | XRay Report ---
XR pelvis AP 1 or 2 Views Indication: Postop Comparison: AP pelvis 11/14/2016. Technique: AP view the pelvis was performed. Findings: Bipolar hip prosthesis is not well visualized and angulation of the right leg are possibly anterior rotation of the right leg and prosthesis are suggested. Left hip prosthesis is grossly unremarkable. Impression: 1. There is limited motion of the right hip on the 2 images provided. The right hip prosthesis is not well visualized and appears to be rotated anteriorly. No displaced fractures of the bony structure right pelvis or proximal femur present. 03/16/2017 1:00 PM PROCEDURE INTERPRETED AT [facility] DEPARTMENT OF RADIOLOGY Final Report Signed by: Dr. Phu Savage
[2017-03-16] MEDS: GABAPENTIN 100 MG CAPSULE PO SCH ×2 (14:35→20:11)
[2017-03-16] MEDS: CYPROHEPTADINE 4 MG TABLET PO SCH ×3 (14:35→20:11)
[2017-03-16] MEDS: FLUDROCORTISONE 0.1 MG TABLET PO SCH (14:35)
[2017-03-16] MEDS: POTASSIUM CHLORIDE 20 MEQ PACK PO SCH ×3 (14:36→20:11)
[2017-03-16] MEDS: MIDODRINE 5 MG TABLET PO SCH (14:36)
[2017-03-16] MEDS: LEVOTHYROXINE 50 MCG TABLET PO SCH (14:36)
[2017-03-16] MEDS: POTASSIUM CHLORIDE RIDER 10 MEQ in PREMIX 1 EACH IV PRN ×3 (15:13→18:55)
--- NOTE | 2017-03-16 16:42 | Anesthesia Post-Op ---
Anesthesia Post OP - Post Ansesthetic Evaluation Patient seen in post op: Yes Resp: within normal limits CV: within normal limits Mental: within normal limits Temp: within normal limits Ldil-Oo-Qyhkknupd: within normal limits Nausea and Vomiting: within normal limits Pain: within normal limits
[2017-03-16] MEDS: OLANZapine 2.5 MG TABLET PO SCH (20:11)
[2017-03-16] MEDS: ASPIRIN EC 81 MG TABLET PO SCH (20:11)
[2017-03-16] MEDS: DONEPEZIL 5 MG TABLET PO SCH (20:11)
[2017-03-16] MEDS: TRAVOPROST 0.004% OPH SOLN 2.5 ML BOTTLE BOTH EYES SCH (20:11)
[2017-03-17] MEDS: SODIUM CHLORIDE 0.9% 1,000 ML IV SCH ×5 (01:53→21:23)
[2017-03-17 02:28] LABS: Basophils % 0.1 % (0.0-0.8); Eosinophils # 0.1 10*3/uL (0.0-0.87); Eosinophils % 1.1 % (0.00-10.9); Hematocrit 30.7 VOL% (35.7-47.0); Immature Granulocytes % 0.5 %; Immature Granulocytes Absolute 0.05 #; Lymphocytes # 2.9 10*3/uL (1.4-4.0); Lymphocytes % 28.1 % (21.3-54.2); Mean Corpuscular HGB Conc 32.6 GM/DL (32-36); Mean Corpuscular Hemoglobin 29 PG (27-34); Mean Corpuscular Volume 88.2 FL (87-102); Monocytes # 0.8 10*3/uL (0.11-0.8); Monocytes % 7.6 % (1.7-12.7); Neutrophils # 6.5 10*3/uL (1.4-7.4); Neutrophils % 62.6 % (38.7-73.9); Platelet Count 141 T/CUMM (130-400); Red Blood Count 3.48 MC/CUMM (3.8-5.5); Red Cell Distribution Width 13.9 % (9.3-17.3); White Blood Count 10.3 T/CUMM (4-12)
[2017-03-17 03:04] LABS: Osmolality,Calculated 275.4 MOS/KG (273-304); Potassium 3.6 MMOL/L (3.5-5.1)
[2017-03-17 03:09] LABS: Albumin 2.6 G/DL (3.4-5.0); Bilirubin,Total 0.7 MG/DL (0.2-1.0); Calcium 7.9 MG/DL (8.5-10.1); Magnesium 1.6 MG/DL (1.8-2.4); Osmolality,Calculated 273.5 MOS/KG (273-304); Phosphorous 2.7 MG/DL (2.5-4.9); Potassium 3.5 MMOL/L (3.5-5.1)
[2017-03-17] MEDS: BRIMONIDINE/TIMOLOL OPH SOLN 5 ML BOTTLE RIGHT EYE SCH ×2 (07:25→21:22)
[2017-03-17] MEDS: ENOXAPARIN 40 MG/0.4 ML SYRINGE SUBCUT SCH (07:25)
[2017-03-17] MEDS: cycloSPORINE OPH EMUL 1 VIAL BOTH EYES SCH ×2 (07:26→21:22)
[2017-03-17] MEDS ORDERED: MAGNESIUM SULF RIDER 4 GM in PREMIX 1 EACH IV PRN (07:33)
[2017-03-17] MEDS: POTASSIUM CHLORIDE 20 MEQ PACK PO SCH ×3 (08:41→21:25)
[2017-03-17] MEDS: FLUDROCORTISONE 0.1 MG TABLET PO SCH (08:41)
[2017-03-17] MEDS: CYPROHEPTADINE 4 MG TABLET PO SCH ×3 (08:41→21:25)
[2017-03-17] MEDS: METOPROLOL TARTRATE 50 MG TABLET PO SCH ×2 (08:42→21:26)
[2017-03-17] MEDS: amLODIPine 2.5 MG TABLET PO SCH (08:42)
[2017-03-17] MEDS: PANTOPRAZOLE 40 MG TABLET PO SCH (08:43)
[2017-03-17] MEDS: LEVOTHYROXINE 50 MCG TABLET PO SCH (08:43)
[2017-03-17] MEDS: GABAPENTIN 100 MG CAPSULE PO SCH ×2 (08:43→21:26)
[2017-03-17] MEDS: MIDODRINE 5 MG TABLET PO SCH (08:44)
[2017-03-17] MEDS: MAGNESIUM SULF RIDER 2 GM in PREMIX 1 EACH IV PRN (09:45)
--- NOTE | 2017-03-17 09:57 | Orthopedic Progress Note ---
Assessment and Plan (1) Fracture of femoral neck, closed Status: Acute Assessment and plan: Continued care: PT - left anterior hip precautions, right posterior hip precautions DVT prophylaxis, pain control, DC planning to rehab/swing bed Current Visit: No Qualifiers: Encounter type: initial encounter Laterality: right Qualified Code(s): S72.001A - Fracture of unspecified part of neck of right femur, initial encounter for closed fracture (2) Dementia Status: Chronic Current Visit: Yes Orthopedics - Subjective Interval history: Patient seen and examined in her room. Daughter at bedside. Denies complaints. Exam - Constitutional Vitals: Period Temp Pulse Resp BP Sys/North Pulse Ox Last 24 Hr 97 F-99.8 F 68-80 14-22 94-175/52-80 7-100 - Extremities Exam Extremities exam: Present: normal inspection (Left lower extremity: Dressing clean, dry, intact. Nontender to palpation to thigh. Sensation is intact all dermatomes distally. Full active range of motion foot and ankle. Cap refill brisk.) Results - Labs CBC & BMP: 03/17/17 01:31 03/17/17 01:31 Lab Results: I have reviewed the past 24 hour labs - Diagnostic Findings Procedure: X-ray: image reviewed by me, report reviewed by me
[2017-03-17] MEDS: POTASSIUM CHLORIDE RIDER 10 MEQ in PREMIX 1 EACH IV PRN ×2 (11:40→12:45)
--- NOTE | 2017-03-17 14:55 | Hospitalist Progress Note ---
Assessment and Plan (1) Hypothyroidism Status: Chronic Assessment and plan: Home meds Current Visit: Yes (2) Hypertension Status: Chronic Assessment and plan: home meds Current Visit: No (3) Fracture of femoral neck, left Status: Acute Assessment and plan: Ortho managing s/p repair Current Visit: Yes Hospitalist: Subjective Interval history: No acute events overnight. Denies hip pain. Exam - Constitutional Vitals: Period Temp Pulse Resp BP Sys/North Pulse Ox Last 24 Hr 97.4 F-100.1 F 68-78 14-20 121-171/62-86 92-99 General appearance: normal weight - Head Head exam: Present: normocephalic, atraumatic - Eye Eye exam: Present: EOMI Pupils: Present: DOM - ENT ENT exam: Present: normal exam - Neck Neck exam: Present: normal inspection - Respiratory Respiratory exam: Present: clear to auscultation bilaterally. Absent: rhonchi, wheezes - Cardiovascular Cardiovascular exam: Present: regular rate and rhythm - GI/Abdominal GI/Abdominal exam: Present: normal bowel sounds, soft. Absent: tenderness, rebound - Extremities Exam Extremities exam: Present: normal inspection - Back Exam Back exam: Present: normal inspection - Neurological Exam Neurological exam: Present: alert - Psychiatric Psychiatric exam: Present: normal affect, normal mood - Skin Skin exam: Present: warm, intact Results - Labs CBC & BMP: 03/17/17 01:31 03/17/17 01:31
[2017-03-17] MEDS: ASPIRIN EC 81 MG TABLET PO SCH (21:22)
[2017-03-17] MEDS: OLANZapine 2.5 MG TABLET PO SCH (21:26)
[2017-03-17] MEDS: TRAVOPROST 0.004% OPH SOLN 2.5 ML BOTTLE BOTH EYES SCH (21:26)
[2017-03-17] MEDS: DONEPEZIL 5 MG TABLET PO SCH (21:26)
[2017-03-17] MEDS ORDERED: METOPROLOL TARTRATE 5 MG/5 ML VIAL IV ONE (23:51)
[2017-03-18] MEDS: SODIUM CHLORIDE 0.9% 1,000 ML IV SCH ×5 (01:17→17:21)
[2017-03-18] MEDS: cycloSPORINE OPH EMUL 1 VIAL BOTH EYES SCH ×2 (06:45→18:08)
[2017-03-18] MEDS: BRIMONIDINE/TIMOLOL OPH SOLN 5 ML BOTTLE RIGHT EYE SCH ×2 (06:45→18:10)
[2017-03-18] MEDS: ENOXAPARIN 40 MG/0.4 ML SYRINGE SUBCUT SCH (06:46)
--- NOTE | 2017-03-18 07:29 | EKG Report ---
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
--- NOTE | 2017-03-18 09:00 | Orthopedic Progress Note ---
Assessment and Plan (1) Fracture of femoral neck, closed Status: Acute Assessment and plan: Continued care: PT - left anterior hip precautions, right posterior hip precautions DVT prophylaxis, pain control, DC planning to rehab/swing bed Current Visit: No Qualifiers: Encounter type: initial encounter Laterality: right Qualified Code(s): S72.001A - Fracture of unspecified part of neck of right femur, initial encounter for closed fracture (2) Dementia Status: Chronic Current Visit: Yes Orthopedics - Subjective Interval history: Patient seen and examined. Daughter at bedside. States that she got out of bed to chair yesterday Exam - Constitutional Vitals: Period Temp Pulse Resp BP Sys/North Pulse Ox Last 24 Hr 99 F-100.1 F 74-145 17-20 107-154/64-86 93-96 - Extremities Exam Extremities exam: Present: normal inspection (Left lower extremity: Dressing clean, dry, intact. Compartments soft. Sensation intact. Full active range of motion foot and ankle. Cap refill brisk) Results - Labs CBC & BMP: 03/17/17 01:31 03/17/17 01:31 Lab Results: I have reviewed the past 24 hour labs
[2017-03-18] MEDS: LEVOTHYROXINE 50 MCG TABLET PO SCH (09:10)
[2017-03-18] MEDS: POTASSIUM CHLORIDE 20 MEQ PACK PO SCH ×3 (09:10→22:00)
[2017-03-18] MEDS: PANTOPRAZOLE 40 MG TABLET PO SCH (09:10)
[2017-03-18] MEDS: GABAPENTIN 100 MG CAPSULE PO SCH ×2 (09:13→21:55)
[2017-03-18] MEDS: CYPROHEPTADINE 4 MG TABLET PO SCH ×3 (09:14→21:57)
[2017-03-18] MEDS: FLUDROCORTISONE 0.1 MG TABLET PO SCH (09:14)
[2017-03-18] MEDS: MIDODRINE 5 MG TABLET PO SCH (09:15)
[2017-03-18] MEDS: METOPROLOL TARTRATE 50 MG TABLET PO SCH ×2 (09:15→21:54)
[2017-03-18] MEDS: amLODIPine 2.5 MG TABLET PO SCH (09:16)
--- NOTE | 2017-03-18 11:59 | Hospitalist Progress Note ---
Assessment and Plan (1) Hypothyroidism Status: Chronic Assessment and plan: Home meds Current Visit: Yes (2) Hypertension Status: Chronic Assessment and plan: home meds Current Visit: No (3) Fracture of femoral neck, left Status: Acute Assessment and plan: Ortho managing s/p repair Current Visit: Yes Hospitalist: Subjective Interval history: No acute events overnight. Pain is controlled. Exam - Constitutional Vitals: Period Temp Pulse Resp BP Sys/North Pulse Ox Last 24 Hr 99 F-99.4 F 81-145 17-20 107-154/65-86 93-96 General appearance: normal weight - Head Head exam: Present: normocephalic, atraumatic - Eye Eye exam: Present: EOMI Pupils: Present: DOM - ENT ENT exam: Present: normal exam - Neck Neck exam: Present: normal inspection - Respiratory Respiratory exam: Present: clear to auscultation bilaterally. Absent: wheezes - Cardiovascular Cardiovascular exam: Present: regular rate and rhythm - GI/Abdominal GI/Abdominal exam: Present: normal bowel sounds, soft. Absent: tenderness, rebound - Extremities Exam Extremities exam: Present: normal inspection - Back Exam Back exam: Present: normal inspection - Neurological Exam Neurological exam: Present: alert - Psychiatric Psychiatric exam: Present: normal affect, normal mood - Skin Skin exam: Present: warm, intact Results - Labs CBC & BMP: 03/17/17 01:31 03/17/17 01:31
[2017-03-18] MEDS: ASPIRIN EC 81 MG TABLET PO SCH (18:07)
[2017-03-18] MEDS ORDERED: ACETAMINOPHEN 325 MG TABLET PO PRN (18:14)
[2017-03-18] MEDS: DONEPEZIL 5 MG TABLET PO SCH (21:54)
[2017-03-18] MEDS: OLANZapine 2.5 MG TABLET PO SCH (21:56)
[2017-03-18] MEDS: TRAVOPROST 0.004% OPH SOLN 2.5 ML BOTTLE BOTH EYES SCH (21:59)
[2017-03-19] MEDS: SODIUM CHLORIDE 0.9% 1,000 ML IV SCH ×4 (01:25→23:20)
[2017-03-19 06:15] LABS: Hematocrit 28.8 VOL% (35.7-47.0); Hemoglobin 9.3 GM/DL (12.0-16.0)
[2017-03-19] MEDS: ENOXAPARIN 40 MG/0.4 ML SYRINGE SUBCUT SCH (06:20)
[2017-03-19] MEDS: BRIMONIDINE/TIMOLOL OPH SOLN 5 ML BOTTLE RIGHT EYE SCH ×2 (06:22→20:55)
[2017-03-19] MEDS: cycloSPORINE OPH EMUL 1 VIAL BOTH EYES SCH ×2 (06:23→20:55)
[2017-03-19] MEDS: METOPROLOL TARTRATE 50 MG TABLET PO SCH ×2 (09:55→20:30)
--- NOTE | 2017-03-19 09:55 | Hospitalist Progress Note ---
Assessment and Plan (1) Hypothyroidism Status: Chronic Assessment and plan: Home meds Current Visit: Yes (2) Hypertension Status: Chronic Assessment and plan: home meds Current Visit: No (3) Fracture of femoral neck, left Status: Acute Assessment and plan: Ortho managing s/p repair Current Visit: Yes Hospitalist: Subjective Interval history: No acute events overnight. Patient complains of lower abdominal burning with urination, as well as increased urination. Pain is controlled, but pain medications make her very sleepy Exam - Constitutional Vitals: Period Temp Pulse Resp BP Sys/North Pulse Ox Last 24 Hr 98.4 F-99.8 F 62-98 16-20 103-192/68-87 91-94 General appearance: normal weight - Head Head exam: Present: normocephalic, atraumatic - Eye Eye exam: Present: EOMI Pupils: Present: DOM - ENT ENT exam: Present: normal exam - Neck Neck exam: Present: normal inspection - Respiratory Respiratory exam: Present: clear to auscultation bilaterally. Absent: rhonchi, wheezes - Cardiovascular Cardiovascular exam: Present: regular rate and rhythm - GI/Abdominal GI/Abdominal exam: Present: normal bowel sounds, soft. Absent: tenderness, rebound - Extremities Exam Extremities exam: Present: normal inspection - Back Exam Back exam: Present: normal inspection - Neurological Exam Neurological exam: Present: alert - Psychiatric Psychiatric exam: Present: normal affect, normal mood - Skin Skin exam: Present: warm, intact Results - Labs CBC & BMP: 03/19/17 04:43 03/17/17 01:31 Specialty Discharge - Follow Up or Referrals
[2017-03-19] MEDS: GABAPENTIN 100 MG CAPSULE PO SCH ×2 (09:56→20:30)
[2017-03-19] MEDS: LEVOTHYROXINE 50 MCG TABLET PO SCH (09:56)
[2017-03-19] MEDS: CYPROHEPTADINE 4 MG TABLET PO SCH ×3 (09:56→20:29)
[2017-03-19] MEDS: FLUDROCORTISONE 0.1 MG TABLET PO SCH (09:56)
[2017-03-19] MEDS: MIDODRINE 5 MG TABLET PO SCH (09:56)
[2017-03-19] MEDS: amLODIPine 2.5 MG TABLET PO SCH (09:56)
[2017-03-19] MEDS: PANTOPRAZOLE 40 MG TABLET PO SCH (09:56)
[2017-03-19] MEDS: POTASSIUM CHLORIDE 20 MEQ PACK PO SCH ×3 (09:56→20:29)
[2017-03-19 10:28] LABS: Apearance,Urine CLEAR (Clear); Bacteria,Urine Occasional /HPF (Few); Bilirubin,Urine Negative (Negative); Blood, Urine Negative (Negative); Glucose,Urine (UA) 150 mg/dL (Negative); Ketones,Urine Negative (Negative); Nitrite,Urine Negative (Negative); Protein,Urine Negative; RBC,Urine <1 /HPF (0-4); Squamous Epithelial Cell,Urine Occasional /HPF (0-10); Urine Color Colorless (Yellow); Urine Specific Gravity 1.004 (1.001-1.035); Urine Urobilinogen < 2.0 EU/DL (0.2-1.0); WBC,Urine 1 /HPF (0-6)
--- NOTE | 2017-03-19 12:26 | Pathology Report from [facility] ---
[facility] [place] : [id number] PATIENT NAME : Nella Serna ORDERING DR : Jack Horn DO CLINICAL HX: Displaced femoral neck fracture, left POST-OP DX: Same SPECIMEN INFO: Left hip bone and tissue GROSS DESCRIPTION: The specimen is received in formalin labeled with the patients name and consists of a fractured femoral head measuring 4.5 x 4.5 x 3.5 cm. The articular surface is red-connolly and mildly roughened with no bony eburnation seen. The area of fracture is shaggy and hemorrhagic with no softening appreciated. Social Welfare Clerk tissue submitted in one cassette following decalcification. DIAGNOSIS FOR NELLA SERNA: LEFT HIP BONE & TISSUE, HEMIARTHROPLASTY HIP REPLACEMENT: Marked acute hemorrhage c/w fracture. COLLECTED DATE: 03/18/2017 [facility] [place] DATE: 03/19/2017 ELECTRONICALLY SIGNED BY: Gabriele Zhao M.D. 03/19/2017 - 9:57:39 MTDAlison
[2017-03-19] MEDS ORDERED: TUBERCULIN SKIN TEST 0.1 ML SYRINGE INTRADERM ONE (16:55)
--- NOTE | 2017-03-19 16:57 | Case Mgmt Physician Query Form ---
TB Signs and Symptoms Screening ([place]) INSTRUCTIONS: To be completed annually on residents/staff with a significant Tuberculin Skin Test (TST) upon admission/hire or a prior significant TST. To be completed on all staff at hire. Please respond to each listed symptom with an (X) in either the "YES" or "NO" box. Do you currently have any of the following symptoms: YES NO ( ) (x ) A cough If yes, is it: ( ) Productive ( ) Non- productive ( ) (x ) Hemoptysis (spitting up blood) ( ) (x ) Chest pains ( ) (x ) Weight Loss ( ) (x ) Fever ( ) (x ) Night Sweats ( ) (x ) Weakness ( ) (x ) Loss of Appetite ( ) (x ) Difficulty Breathing If you answered YES" to any of the above questions, how long have symptoms been present? Comments: If you have any questions, please contact me. Thank you, Karime Gonzales RN, Office : [phone] Email : [email or web address]
[2017-03-19] MEDS ORDERED: BISACODYL 10 MG SUPP RECTAL PRN (19:19)
--- NOTE | 2017-03-19 19:28 | Orthopedic Progress Note ---
Orthopedics - Subjective Interval history: Tammie Modi underwent a left anterior hip hemiarthroplasty by Dr. Horn. She is currently waiting for swing bed placement. Her dressing is clean, dry and intact. Left lower extremities neurovascularly unchanged. Plan: Continue with postoperative plan. Exam - Constitutional Vitals: Period Temp Pulse Resp BP Sys/North Pulse Ox Last 24 Hr 97.2 F-99.7 F 71-98 18-20 129-167/68-87 91-95 Results - Labs CBC & BMP: 03/19/17 04:43 03/17/17 01:31 Specialty Discharge - Follow Up or Referrals
[2017-03-19] MEDS: MAGNESIUM HYDROXIDE SUSP 30 ML UDCUP PO PRN (20:30)
[2017-03-19] MEDS: DONEPEZIL 5 MG TABLET PO SCH (20:30)
[2017-03-19] MEDS: ASPIRIN EC 81 MG TABLET PO SCH (20:30)
[2017-03-19] MEDS: TRAVOPROST 0.004% OPH SOLN 2.5 ML BOTTLE BOTH EYES SCH (20:55)
[2017-03-19] MEDS: OLANZapine 2.5 MG TABLET PO SCH (21:46)
--- NOTE | 2017-03-19 22:20 | Event Note ---
we were called about a tachycardia that was occurring with the patient. Patient's heart rate had gone up to 150. We get a EKG and it was consistent with atrial flutter. I am going to transfer the patient to the telemetry and put her on a Cardizem drip. Patient is a patient of Dr. John'darryl on outpatient basis. I would recommend a cardiology consult in the morning
[2017-03-19] MEDS ORDERED: DIGOXIN 0.5 MG/2 ML AMP IV ONE (23:46)
[2017-03-19] MEDS ORDERED: DIGOXIN 0.5 MG/2 ML AMP ONE (23:52)
[2017-03-19] MEDS: DILTIAZEM INJ 100 MG in SODIUM CHLORIDE 0.9% 100 ML IV SCH (23:56)
[2017-03-20 05:46] LABS: Hematocrit 27.2 VOL% (35.7-47.0); Hemoglobin 9.1 GM/DL (12.0-16.0)
[2017-03-20] MEDS: ENOXAPARIN 40 MG/0.4 ML SYRINGE SUBCUT SCH (06:12)
[2017-03-20] MEDS: DIGOXIN 0.25 MG TABLET PO SCH ×2 (06:12→10:10)
[2017-03-20 06:26] LABS: Albumin 2.1 G/DL (3.4-5.0); Bilirubin,Total 0.8 MG/DL (0.2-1.0); Free T4 (Free Thyroxine) 1.07 NG/DL (0.76-1.46); Magnesium 1.7 MG/DL (1.8-2.4); Osmolality,Calculated 279.1 MOS/KG (273-304); Potassium 2.7 MMOL/L (3.5-5.1); Thyroid Stimulating Hormone 3.57 uIU/ml (0.358-3.74); Total Protein 4.5 G/DL (6.4-8.3)
--- NOTE | 2017-03-20 06:41 | EKG Report ---
Stationary ECG Study 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
[2017-03-20] MEDS: POTASSIUM CHLORIDE RIDER 10 MEQ in PREMIX 1 EACH IV PRN ×3 (09:15→19:59)
[2017-03-20] MEDS: CYPROHEPTADINE 4 MG TABLET PO SCH ×3 (10:02→22:39)
[2017-03-20] MEDS: GABAPENTIN 100 MG CAPSULE PO SCH ×2 (10:03→22:39)
[2017-03-20] MEDS: FLUDROCORTISONE 0.1 MG TABLET PO SCH (10:03)
[2017-03-20] MEDS: LEVOTHYROXINE 50 MCG TABLET PO SCH (10:03)
[2017-03-20] MEDS: PANTOPRAZOLE 40 MG TABLET PO SCH (10:04)
[2017-03-20] MEDS: POTASSIUM CHLORIDE 20 MEQ PACK PO SCH ×3 (10:05→22:40)
[2017-03-20] MEDS: amLODIPine 2.5 MG TABLET PO SCH (10:05)
[2017-03-20] MEDS: METOPROLOL TARTRATE 50 MG TABLET PO SCH ×2 (10:05→22:39)
[2017-03-20] MEDS: MIDODRINE 5 MG TABLET PO SCH (10:10)
[2017-03-20] MEDS: BRIMONIDINE/TIMOLOL OPH SOLN 5 ML BOTTLE RIGHT EYE SCH ×2 (10:15→22:42)
[2017-03-20] MEDS: cycloSPORINE OPH EMUL 1 VIAL BOTH EYES SCH ×2 (10:16→22:42)
[2017-03-20 12:50] LABS: Magnesium 1.8 MG/DL (1.8-2.4); Potassium 3.4 MMOL/L (3.5-5.1)
--- NOTE | 2017-03-20 14:30 | Hospitalist Progress Note ---
Assessment and Plan (1) Hypothyroidism Status: Chronic Assessment and plan: Home meds Current Visit: Yes (2) Hypertension Status: Chronic Assessment and plan: home meds Current Visit: No (3) Fracture of femoral neck, left Status: Resolved Assessment and plan: Ortho managing s/p repair Has been accepted at [facility] for rehab Current Visit: Yes (4) Tachycardia Status: Acute Assessment and plan: Has a history of atrial fibrillation On dilt infusion Cardiology consulted. Current Visit: Yes Hospitalist: Subjective Interval history: Patient with tachycardia to the 140s overnight. She was started on dilt infusion and transferred to the telemetry floor. Cardiology has been consulted. Family member denies any symptoms during this episode. Exam - Constitutional Vitals: Period Temp Pulse Resp BP Sys/North Pulse Ox Last 24 Hr 98.4 F-99.6 F 66-148 16-20 76-155/41-85 92-97 General appearance: normal weight - Head Head exam: Present: normocephalic, atraumatic - Eye Eye exam: Present: EOMI Pupils: Present: DOM - ENT ENT exam: Present: normal exam - Neck Neck exam: Present: normal inspection - Respiratory Respiratory exam: Present: clear to auscultation bilaterally. Absent: wheezes - Cardiovascular Cardiovascular exam: Present: regular rate and rhythm - GI/Abdominal GI/Abdominal exam: Present: normal bowel sounds, soft. Absent: tenderness, rebound - Extremities Exam Extremities exam: Present: normal inspection - Back Exam Back exam: Present: normal inspection - Neurological Exam Neurological exam: Present: alert - Psychiatric Psychiatric exam: Present: normal affect, normal mood - Skin Skin exam: Present: warm, intact Results - Labs CBC & BMP: 03/20/17 05:37 03/20/17 12:07 Specialty Discharge - Follow Up or Referrals
--- NOTE | 2017-03-20 14:57 | Cardiology Consult Note ---
Noah Rosenthal April RN, am scribing for, and in the presence of, Les John MD 14:57. Assessment and Plan - Time spent with patient Time spent with patient: Greater than 30 minutes (Due to assessment, planning, documentation, medication review) (1) Atrial flutter Status: Acute Current Visit: Yes (2) Fracture of femoral neck, left Status: Resolved Assessment and plan: She had repair of left femoral neck fracture March [address] Horn. Orthopedic is following. Current Visit: Yes (3) Dementia Status: Chronic Current Visit: Yes (4) Hypothyroidism Status: Chronic Current Visit: Yes (5) Orthostasis Status: Chronic Current Visit: Yes (6) Atrial fibrillation with RVR Status: Acute Current Visit: Yes (7) Hypokalemia Status: Acute Assessment and plan: This is being repleted intravenously per protocol, we will continue to monitor. Current Visit: Yes History of Present Illness - Data of Consult Patient: known to practice within the last 3 years Consult date: 03/19/17 Requesting Physician: Ryan Quintero Primary care physician: Cyn Cooley - Consult Narrative Reason for consult: A. fib/flutter RVR History of present illness: [place]ax[place] Floor: Dr. 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 Modi is a 86 year old female who has been seen in the past by Dr. John. She is demented and history is taken from her son and [id number] who are at the bedside. She a history of hypertension, hypotension, Alzheimer's , TIA, recurrent UTI, GERD, hypothyroidism, cancer of the neck and lip, and glaucoma. She was seen in consultation in October of this year by Dr. Tyson for age fibrillation with RVR. She was started on a Cardizem infusion and her rate was quickly controlled. She was discharged home on metoprolol tartrate 50 mg p.o. twice daily. She was not felt to be a candidate for anticoagulation due to her frequent falls and confusion. She was also noted to have elevated troponin 0.063 during that admission that was felt to be related to her atrial fibrillation. Echo done that admission with ejection fraction of 50%, grade 1/4 diastolic dysfunction. She had a stress test done at Dr. John's office in March 2013 that suggested normal myocardial perfusion without good evidence to suggest myocardial scar or ischemia. Surgical history includes left and right hip surgery, right knee replacement, and numerous back surgeries. Family history is positive for heart disease in both parents and hypertension in parents and siblings. Of note most of her siblings have required pacemakers. She reports she is a lifetime non-smoker. She lives with her children and uses a walker for assistance. The reports she is very unsteady on her feet and has had several recent falls. She was admitted March 15 after she became dizzy and fell and sustained a fracture to her left femoral neck. Hldhdyze-ze-wpu states the patient was DC, but denied any syncope. She underwent surgery by Dr. Horn on March 16 to repair her left hip. EKG on March 16 showed sinus rhythm with left bundle branch block, heart rate of 67. EKG done March 18 showed atrial fibrillation with heart rate of 85. Yesterday she was tachycardic with rates in the 140s and 150s. EKG at last night suggested junctional rhythm possible atrial flutter with heart rate of 149. In reviewing rhythm strips from last night it looks like she had some runs of A. fib as well as runs of a flutter. The plan was to transfer her from the surgery unit to telemetry and start her on a Cardizem infusion. According to the nurse her blood pressure became low and the infusion was restarted. She was given digoxin 0.25 IV 1 dose and started on digoxin 0.25 p.o. every 4 hours 2 then digoxin 0.125 p.o. daily. Potassium this morning was 2.7, this is being replaced intravenously per protocol. Magnesium today is 1.7, she has protocol ordered for replacement. We will continue to monitor these levels. We have been asked to see her to evaluate her heart rate and rhythm. Ms. Modi is seen today housed on the telemetry unit. The family reports she has times where she is very confused, will yell out and curse which is very unusual for her, and also has visual hallucinations at times. She is oriented to person, but not to place or time. Presently she is resting in bed in no acute distress, is very pleasant and calm. She denies any complaints at this time and the family reports she has not complained of anything. The daughter reports she did complain of it being hard to breathe last night when her heart rate was elevated. 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 Her pressure was low during the night, noted to be seen in the 70s over 40s. This morning it is better at 117/73. Further review of systems obtained from family include: The patient had some syncopal episodes about a year ago, dizziness, headache, nausea, diarrhea, constipation, painful urination. They deny her having any complaints of chest pain. The patient is severely demented and her A. fib is controlled relatively well currently. We are going to put her on 3 day a week Lanoxin. Her prognosis long -term is poor just because of her general condition. My goal will be rate control. Anticoagulation is not an option given the patient's recurring falls. CC: Elba Soares MD - Home Medications and Allergies Home Medications: Home Medications Medication Instructions Recorded Confirmed Type Fludrocortisone [Florinef] 0.1 mg PO DAILY 04/26/16 03/16/17 History Levothyroxine Tab [Synthroid Tab] 50 mcg PO QAM 04/26/16 03/16/17 History Midodrine [Proamatine] 5 mg PO DAILY 04/26/16 03/16/17 History Potassium Chloride [Klor-Con] 20 meq PO TID 04/26/16 03/16/17 History Travoprost 0.004% Oph Soln 1 drop BOTH EYES BEDTIME 04/26/16 03/16/17 History [Travatan Z] Brimonidine/Timolol Oph Soln 1 drop RIGHT EYE RT Q12H 11/09/16 03/16/17 History [Combigan] Cyproheptadine Tab [Periactin Tab] 4 mg PO TID 11/09/16 03/16/17 History Donepezil [Aricept] 5 mg PO BEDTIME 11/09/16 03/16/17 History Gabapentin 100 mg PO BID 11/09/16 03/16/17 History cycloSPORINE OPH EMUL [Restasis] 1 drop BOTH EYES RT Q12H 11/09/16 03/16/17 History Metoprolol Tartrate Tab [Lopressor 50 mg PO BID #60 tablet 11/17/16 03/16/17 Rx Tab] Pantoprazole Tab [Protonix Tab] 40 mg PO DAILY #30 tablet 11/17/16 03/16/17 Rx amLODIPine [Norvasc] 2.5 mg PO DAILY #30 tablet 11/17/16 03/16/17 Rx Aspirin EC Tab 81 mg PO QPM 03/15/17 03/16/17 History OLANZapine TAB [ZyPREXA Tab] 2.5 mg PO BEDTIME 03/15/17 03/16/17 History Allergies/Adverse Reactions: Allergies Allergy/AdvReac Type Severity Reaction Status Date / Time Sulfa (Sulfonamide Allergy ITCHING Verified 03/16/17 06:36 Antibiotics) codeine AdvReac Agitated Verified 03/16/17 06:36 ROS unobtainable: due to dementia Medical,Surgical,& Family Hx - Medical History Cardio: History of: Cardiac Dysrhythmia (History of paroxysmal atrial fibrillation), Hypertension, Cardiovascular Problems (Daughter reports significant orthostasis) Psychological: History of: Behavior Problems, Depression, Psychiatric Problems ( visual hallucinations aeb seeing people coming in her house and talking to) Neurology: History of: Dementia, TIA Endocrine: History of: Dyslipidemia Genitourinary: History of: Recurring Urinary Tract Infections Gastrointestinal: History of: GERD - Surgical History Orthopedic Surgeries: Surgical HX of;: Orthopedic Surgery (Repair of left femoral neck fracture), Spinal Surgery (Numerous back surgeries), Total Hip Replacement (right), Total Knee Replacement (Right) - Family History Family History: Reports;: Family Heart Disease (Mother, father), Family Hypertension (Mother, father, sister, brother) - Social History Smoking Status: Never smoker Have you smoked in the last 12 months: No Frequency of Alcohol Use: None Type of Drug Use: None Marital Status: Single Lives With:: Children Functional capacity: uses cane/walker Physical Examination Vital Signs Temp Pulse Resp BP Pulse Ox 98.4 F 87 18 212/132 97 03/15/17 16:32 03/15/17 16:32 03/15/17 16:32 03/15/17 16:32 03/15/17 16:32 General: Present: Appears Well, No Apparent Distress HEENT: Present: PERRL, Mucus Membranes Moist Neck: Present: Supple Neck, Midline Trachea, No Bruit Cardiac: Present: Irregularly Regular, No Murmur Lungs: Present: Normal Breath Sounds, No Wheeze, Rales, Rhonchi Neuro: Absent: Resting Tremor, Essential Tremor Abdomen: Present: Soft, Active Bowel Sounds, Non-Tender Skin: Present: Clear Incision: Present: Incision Site (Dressing to left hip dry and intact) Musculoskeletal: Present: Decreased Range of Motion Gait: Present: Poor Gait Extremities: Present: No Edema, Normal Upper Extr. Pulses, Normal Lower Extr. Pulses. Absent: Normal Gait Result/EKG - Labs CBC & BMP: 03/20/17 05:37 03/20/17 12:07 Lab Results: I have reviewed the past 24 hour labs Labs: Laboratory Results - last 24 hr 03/20/17 03/20/17 05:37 05:37 Hgb 9.1 L Hct 27.2 L Sodium 142 Potassium 2.7 L Chloride 101 Carbon Dioxide 31 Anion Gap 12.7 BUN 3 L Creatinine 0.40 L GFR Calculation 97 BUN/Creatinine Ratio 7.00 Glucose 106 Calculated Osmolality 279.1 Calcium 8.0 L Magnesium 1.7 L Total Bilirubin 0.80 AST 17 ALT 9 L Alkaline Phosphatase 64 Total Protein 4.5 L Albumin 2.1 L Globulin 2.4 Albumin/Globulin Ratio 0.8 L Free T4 1.07 TSH 3rd Generation 3.570 - EKG EKG results: interpreted by me EKG shows: atrial fibrillation Specialty Discharge - Follow Up or Referrals IAlvaro Wesley, MD, personally performed the services described in this documentation, ascribed by Yeimi Zamora RN in my presence, and it is both accurate and complete [id number] .
[2017-03-20] MEDS: DIGOXIN 0.125 MG TABLET PO SCH (16:05)
[2017-03-20] MEDS: MAGNESIUM HYDROXIDE SUSP 30 ML UDCUP PO PRN (16:14)
--- NOTE | 2017-03-20 16:19 | Orthopedic Progress Note ---
Orthopedics - Subjective Interval history: Ms Modi was transferred to telemetry yesterday for tachycardia. She currently has no complaints. Dressing is clean, dry and intact. Left lower extremities neurovascularly unchanged. Plan: No new recommendations. She can be discharged to swing bed when cleared from medicine and cardiology. Exam - Constitutional Vitals: Period Temp Pulse Resp BP Sys/North Pulse Ox Last 24 Hr 98.4 F-99.6 F 66-148 16-20 76-136/41-77 95-97 Results - Labs CBC & BMP: 03/20/17 05:37 03/20/17 12:07 Specialty Discharge - Follow Up or Referrals
[2017-03-20] MEDS: MAGNESIUM SULF RIDER 2 GM in PREMIX 1 EACH IV PRN (18:13)
[2017-03-20] MEDS: OLANZapine 2.5 MG TABLET PO SCH (22:39)
[2017-03-20] MEDS: ASPIRIN EC 81 MG TABLET PO SCH (22:39)
[2017-03-20] MEDS: TRAVOPROST 0.004% OPH SOLN 2.5 ML BOTTLE BOTH EYES SCH (22:40)
[2017-03-20] MEDS: DONEPEZIL 5 MG TABLET PO SCH (22:40)
[2017-03-20] MEDS: DILTIAZEM INJ 100 MG in SODIUM CHLORIDE 0.9% 100 ML IV SCH (23:51)
[2017-03-20] MEDS: ZIPRASIDONE 20 MG/1 ML VIAL IM PRN (23:54)
[2017-03-21 04:42] LABS: Basophils % 0.1 % (0.0-0.8); Eosinophils # 0.3 10*3/uL (0.0-0.87); Eosinophils % 3.7 % (0.00-10.9); Hematocrit 27.2 VOL% (35.7-47.0); Hemoglobin 8.9 GM/DL (12.0-16.0); Immature Granulocytes % 0.4 %; Immature Granulocytes Absolute 0.04 #; Lymphocytes # 3.2 10*3/uL (1.4-4.0); Mean Corpuscular HGB Conc 32.7 GM/DL (32-36); Mean Corpuscular Hemoglobin 29 PG (27-34); Mean Corpuscular Volume 87.5 FL (87-102); Mean Platelet Volume 9.8 FL (9.6-12.0); Monocytes # 0.7 10*3/uL (0.11-0.8); Monocytes % 7.6 % (1.7-12.7); Neutrophils % 54.2 % (38.7-73.9); Platelet Count 209 T/CUMM (130-400); Red Blood Count 3.11 MC/CUMM (3.8-5.5); Red Cell Distribution Width 14.1 % (9.3-17.3); White Blood Count 9.3 T/CUMM (4-12)
[2017-03-21 05:07] LABS: Calcium 7.7 MG/DL (8.5-10.1); Magnesium 2.3 MG/DL (1.8-2.4); Potassium 2.7 MMOL/L (3.5-5.1)
[2017-03-21 05:52] LABS: Risk Ratio 4.5
[2017-03-21] MEDS: ENOXAPARIN 40 MG/0.4 ML SYRINGE SUBCUT SCH (07:11)
--- NOTE | 2017-03-21 08:56 | Hospitalist Progress Note ---
Assessment and Plan - Time spent with patient Time spent with patient: Greater than 30 minutes (1) Subcapital fracture of neck of left femur Status: Acute Assessment and plan: s/p surgical repair. Awaits placement for rehab. Medically stable for transfer to rehab from my standpoint. Current Visit: Yes (2) Atrial fibrillation with RVR Status: Acute Assessment and plan: Cardiology consulted. Thank you. Dig was added. Off Cardizem drip. Good rate control. Current Visit: Yes (3) Hypokalemia Status: Acute Assessment and plan: Review of record reveals this is a alf problem. Replacement of K+ ongoing now with both oral and IV. Prior screen for adrenal insuficency was negative ( high normal random cortisol on prior test). Will DC norvasc and give trial of low dose aldactone in effort to decrease what is likely renal K+ wasting. Current Visit: Yes Hospitalist: Subjective Interval history: Pt with afib/flutter with rvr. Now rate controlled and hemodynamically stable. Anticipate dc to swing bed today. Pain controlled Exam - Constitutional Vitals: Period Temp Pulse Resp BP Sys/North Pulse Ox Last 24 Hr 98.0 F-98.8 F 59-123 16-20 90-147/54-80 94-97 General appearance: no acute distress - Head Head exam: Present: normal inspection, normocephalic, atraumatic - Eye Eye exam: Present: EOMI Pupils: Present: DOM - ENT ENT exam: Present: normal exam - Neck Neck exam: Present: normal inspection - Respiratory Respiratory exam: Present: clear to auscultation bilaterally - Cardiovascular Cardiovascular exam: Present: irregular rhythm (rate controlled) - GI/Abdominal GI/Abdominal exam: Present: normal bowel sounds. Absent: tenderness - Extremities Exam Extremities exam: Present: other (surgical dressing CDI) - Neurological Exam Neurological exam: Present: alert (mild baseline confusion. no agitation) Results - Labs CBC & BMP: 03/21/17 04:10 03/21/17 04:10 Specialty Discharge - Follow Up or Referrals
[2017-03-21] MEDS: POTASSIUM CHLORIDE 20 MEQ PACK PO SCH ×3 (09:18→20:18)
[2017-03-21] MEDS: SPIRONOLACTONE 25 MG TABLET PO SCH ×2 (09:18→20:17)
[2017-03-21] MEDS: CYPROHEPTADINE 4 MG TABLET PO SCH ×3 (09:18→20:18)
[2017-03-21] MEDS: GABAPENTIN 100 MG CAPSULE PO SCH ×2 (09:18→20:18)
[2017-03-21] MEDS: LEVOTHYROXINE 50 MCG TABLET PO SCH (09:18)
[2017-03-21] MEDS: FLUDROCORTISONE 0.1 MG TABLET PO SCH (09:19)
[2017-03-21] MEDS: PANTOPRAZOLE 40 MG TABLET PO SCH (09:19)
[2017-03-21] MEDS: METOPROLOL TARTRATE 50 MG TABLET PO SCH ×2 (09:19→20:17)
[2017-03-21] MEDS: MIDODRINE 5 MG TABLET PO SCH (09:19)
[2017-03-21] MEDS: cycloSPORINE OPH EMUL 1 VIAL BOTH EYES SCH ×2 (09:21→20:18)
[2017-03-21] MEDS: BRIMONIDINE/TIMOLOL OPH SOLN 5 ML BOTTLE RIGHT EYE SCH ×2 (09:22→20:18)
[2017-03-21] MEDS: POTASSIUM CHLORIDE RIDER 10 MEQ in PREMIX 1 EACH IV PRN ×5 (09:23→18:35)
[2017-03-21] MEDS: DIGOXIN 0.125 MG TABLET PO SCH (13:46)
--- NOTE | 2017-03-21 16:31 | Cardiology Progress Note ---
Noah Rosenthal April RN, am scribing for, and in the presence of, Les John MD 16:31. Assessment and Plan (1) Atrial flutter Status: Acute Current Visit: Yes (2) Fracture of femoral neck, left Status: Resolved Assessment and plan: She had repair of left femoral neck fracture March [address] Horn. Orthopedic is following. Current Visit: Yes (3) Dementia Status: Chronic Current Visit: Yes (4) Hypothyroidism Status: Chronic Current Visit: Yes (5) Orthostasis Status: Chronic Current Visit: Yes (6) Atrial fibrillation with RVR Status: Acute Current Visit: Yes (7) Hypokalemia Status: Acute Assessment and plan: This is being repleted intravenously per protocol, we will continue to monitor. Current Visit: Yes Cardiology - PN: Subj Interval history: Inspector Heating And Refrigeration: Dr. 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 Modi is seen sitting up in chair in no acute distress. She is day 5 status post repair of left hip fracture by Dr. Horn. She had some atrial fibrillation during the night with rates in the 150s, front desk monitor currently shows atrial fibrillation with heart rates in the 60s and 70s. Potassium yesterday was 2.7. This was replaced intravenously and on recheck yesterday afternoon it was 3.4. This morning it is again 2.7. Is been replaced intravenously per protocol. Her magnesium was also low yesterday at 1.7. This was replaced per protocol and today it is 2.3. Exam (Progress Note) - Constitutional Vitals: Period Temp Pulse Resp BP Sys/North Pulse Ox Last 24 Hr 98.0 F-98.8 F 59-123 16-20 90-147/54-80 94-97 Exam: General: Present: Appears Well, No Apparent Distress HEENT: Present: PERRL, Mucus Membranes Moist Neck: Present: Supple Neck, Midline Trachea, No Bruit Cardiac: Present: Irregularly Regular, No Murmur Lungs: Present: Normal Breath Sounds, No Wheeze, Rales, Rhonchi Neuro: Absent: Resting Tremor, Essential Tremor Abdomen: Present: Soft, Active Bowel Sounds, Non-Tender Skin: Present: Clear Incision: Present: Incision Site (Dressing to left hip dry and intact) Musculoskeletal: Present: Decreased Range of Motion Gait: Present: Poor Gait Extremities: Present: No Edema, Normal Upper Extr. Pulses, Normal Lower Extr. Pulses. Absent: Normal Gait Result/EKG - Labs CBC & BMP: 03/21/17 04:10 03/21/17 04:10 Lab Results: I have reviewed the past 24 hour labs Labs: Laboratory Results - last 24 hr 03/20/17 03/21/17 03/21/17 12:07 04:10 04:10 WBC 9.3 RBC 3.11 L Hgb 8.9 L Hct 27.2 L MCV 87.5 MCH 29 MCHC 32.7 RDW 14.1 Plt Count 209 MPV 9.8 Neut % (Auto) 54.2 Lymph % (Auto) 34.0 [place] % (Auto) 7.6 Eos % (Auto) 3.7 Baso % (Auto) 0.1 Neut # (Auto) 5.0 Lymph # (Auto) 3.2 [place] # (Auto) 0.7 Eos # (Auto) 0.3 Baso # (Auto) 0.0 Immature Gran % 0.4 Nucleated RBC % 0.0 Immature Gran # 0.04 Nucleated RBCs # 0.00 Sodium 143 Potassium 3.4 L 2.7 L Chloride 103 Carbon Dioxide 31 Anion Gap 11.7 BUN 4 L Creatinine 0.40 L GFR Calculation 97 BUN/Creatinine Ratio 10.00 Glucose 93 Calculated Osmolality 281.0 Calcium 7.7 L Magnesium 1.8 2.3 Triglycerides Cholesterol LDL Cholesterol VLDL Cholesterol HDL Cholesterol Heart Disease Risk Ratio 03/21/17 04:10 WBC RBC Hgb Hct MCV MCH MCHC RDW Plt Count MPV Neut % (Auto) Lymph % (Auto) [place] % (Auto) Eos % (Auto) Baso % (Auto) Neut # (Auto) Lymph # (Auto) [place] # (Auto) Eos # (Auto) Baso # (Auto) Immature Gran % Nucleated RBC % Immature Gran # Nucleated RBCs # Sodium Potassium Chloride Carbon Dioxide Anion Gap BUN Creatinine GFR Calculation BUN/Creatinine Ratio Glucose Calculated Osmolality Calcium Magnesium Triglycerides 125 Cholesterol 162 LDL Cholesterol 110.0 VLDL Cholesterol 25.0 HDL Cholesterol 36 L Heart Disease Risk Ratio 4.50 - EKG EKG results: interpreted by me EKG shows: atrial fibrillation Specialty Discharge - Follow Up or Referrals IAlvaro Wesley, MD, personally performed the services described in this documentation, ascribed by Yeimi Zamora RN in my presence, and it is both accurate and complete [id number] .
[2017-03-21] MEDS: DONEPEZIL 5 MG TABLET PO SCH (20:17)
[2017-03-21] MEDS: TRAVOPROST 0.004% OPH SOLN 2.5 ML BOTTLE BOTH EYES SCH (20:18)
[2017-03-21] MEDS: ASPIRIN EC 81 MG TABLET PO SCH (20:18)
[2017-03-21] MEDS: OLANZapine 2.5 MG TABLET PO SCH (20:18)
[2017-03-21] MEDS: DILTIAZEM INJ 100 MG in SODIUM CHLORIDE 0.9% 100 ML IV SCH (22:20)
[2017-03-21] MEDS: ZIPRASIDONE 20 MG/1 ML VIAL IM PRN (23:30)
[2017-03-22 05:58] LABS: Basophils % 0.1 % (0.0-0.8); Eosinophils # 0.4 10*3/uL (0.0-0.87); Eosinophils % 4.5 % (0.00-10.9); Hematocrit 30.1 VOL% (35.7-47.0); Hemoglobin 9.9 GM/DL (12.0-16.0); Immature Granulocytes % 0.7 %; Immature Granulocytes Absolute 0.06 #; Lymphocytes % 34.7 % (21.3-54.2); Mean Corpuscular HGB Conc 32.9 GM/DL (32-36); Mean Corpuscular Hemoglobin 29 PG (27-34); Mean Corpuscular Volume 87.8 FL (87-102); Mean Platelet Volume 9.6 FL (9.6-12.0); Monocytes # 0.7 10*3/uL (0.11-0.8); Monocytes % 8.4 % (1.7-12.7); Neutrophils # 4.4 10*3/uL (1.4-7.4); Neutrophils % 51.6 % (38.7-73.9); Platelet Count 248 T/CUMM (130-400); Red Blood Count 3.43 MC/CUMM (3.8-5.5); Red Cell Distribution Width 14.4 % (9.3-17.3); White Blood Count 8.6 T/CUMM (4-12)
[2017-03-22] MEDS: ENOXAPARIN 40 MG/0.4 ML SYRINGE SUBCUT SCH (06:02)
[2017-03-22 06:27] LABS: Calcium 8.1 MG/DL (8.5-10.1); Osmolality,Calculated 282.8 MOS/KG (273-304); Potassium 3.2 MMOL/L (3.5-5.1)
[2017-03-22] MEDS ORDERED: POTASSIUM CHLORIDE 20 MEQ PACK PO SCH (08:12)
[2017-03-22] MEDS: SPIRONOLACTONE 25 MG TABLET PO SCH (09:40)
[2017-03-22] MEDS: MIDODRINE 5 MG TABLET PO SCH (09:41)
[2017-03-22] MEDS: BRIMONIDINE/TIMOLOL OPH SOLN 5 ML BOTTLE RIGHT EYE SCH (09:41)
[2017-03-22] MEDS: CYPROHEPTADINE 4 MG TABLET PO SCH (09:41)
[2017-03-22] MEDS: FLUDROCORTISONE 0.1 MG TABLET PO SCH (09:41)
[2017-03-22] MEDS: LEVOTHYROXINE 50 MCG TABLET PO SCH (09:41)
[2017-03-22] MEDS: cycloSPORINE OPH EMUL 1 VIAL BOTH EYES SCH (09:41)
[2017-03-22] MEDS: METOPROLOL TARTRATE 50 MG TABLET PO SCH (09:41)
[2017-03-22] MEDS: GABAPENTIN 100 MG CAPSULE PO SCH (09:41)
[2017-03-22] MEDS: PANTOPRAZOLE 40 MG TABLET PO SCH (09:41)
--- NOTE | 2017-03-22 09:53 | Discharge Summary ---
Hospital Course - Hospital Course Hospital Course: Ms. Modi presented post fall and left hip pain. She was found to have a fracture of her left femoral neck. She was admitted to the hospitalists service and Orthopedics was consulted. They performed a hemiarthroplasty. She tolerated this procedure well. During her hospitalization, she was noted to develop atrial flutter with RVR. She was transferred to telemetry and initiated on IV rate controlling medication. Cardiology was consulted. She was initiated on digoxin and eventually discontinued from the IV rate controlling medication. Anticoagulation was contraindicated given her propensity and multiple falls. By discharge, she had met maximum benefit of hospitalization. She will be discharged to swing bed. I spent 42 minutes coordinating this discharge. - Time spent with patient Time with patient DS: Greater than 30 minutes Specialty Discharge - Follow Up or Referrals Follow up with: Albert Frias Jr., MD [Physician] - 04/19/17 9:15 am (4 wk ) Les John MD [Physician] - 04/10/17 9:50 am Discharge Plan - Discharge Data Disposition: Disch To Home/Self Care Condition at Discharge: Stable Discharge Diet: advance to your usual diet Activity: resume usual activities as tolerated - Discharge Medications New Spironolactone [Aldactone] 12.5 mg PO BID tablet Ziprasidone Cap [Geodon Cap] 20 mg PO Q6H PRN #30 capsule PRN Reason: Agitation Digoxin Tab [Lanoxin Tab] 0.125 mg PO DAILY@1300 tablet Continue Potassium Chloride [Klor-Con] 20 meq PO TID Levothyroxine Tab [Synthroid Tab] 50 mcg PO QAM Midodrine [Proamatine] 5 mg PO DAILY Fludrocortisone [Florinef] 0.1 mg PO DAILY Travoprost 0.004% Oph Soln [Travatan Z] 1 drop BOTH EYES BEDTIME Gabapentin 100 mg PO BID Donepezil [Aricept] 5 mg PO BEDTIME Brimonidine/Timolol Oph Soln [Combigan] 1 drop RIGHT EYE RT Q12H cycloSPORINE OPH EMUL [Restasis] 1 drop BOTH EYES RT Q12H OLANZapine TAB [ZyPREXA Tab] 2.5 mg PO BEDTIME Cyproheptadine Tab [Periactin Tab] 4 mg PO TID Metoprolol Tartrate Tab [Lopressor Tab] 50 mg PO BID #60 tablet Pantoprazole Tab [Protonix Tab] 40 mg PO DAILY #30 tablet amLODIPine [Norvasc] 2.5 mg PO DAILY #30 tablet Aspirin EC Tab 81 mg PO QPM - Follow Up or Referral Follow Up: Albert Frias Jr., MD [Physician] - 04/19/17 9:15 am (4 wk ) Les John MD [Physician] - 04/10/17 9:50 am - Forms/Instructions Instructions: Atrial Fibrillation (GEN), Hip Fracture (GEN), Hip Fracture, Cloth Checker (GEN) Exam - Constitutional Vitals: Period Temp Pulse Resp BP Sys/North Pulse Ox Last 24 Hr 97.2 F-98.8 F 32-97 18-20 125-193/59-85 94-98 General appearance: normal weight, no acute distress - Head Head exam: Present: normal inspection, normocephalic, atraumatic - Eye Eye exam: Present: EOMI Pupils: Present: DOM - ENT ENT exam: Present: normal exam - Neck Neck exam: Present: normal inspection - Respiratory Respiratory exam: Present: clear to auscultation bilaterally. Absent: accessory muscle use, prolonged expiratory phase, wheezes - Cardiovascular Cardiovascular exam: Present: irregular rhythm. Absent: bradycardia, systolic murmur, tachycardia - GI/Abdominal GI/Abdominal exam: Present: normal bowel sounds. Absent: ascites, distended, hypoactive bowel sounds, tenderness, rebound - Extremities Exam Extremities exam: Present: normal inspection Discharge Results Procedures and tests throughout hospitalization: Pending Orders 03/22/17 08:59 Digoxin Stat 03/23/17 04:00 BMP w/ Mg [Basic Metabolic Panel w/Mg] IN AM CBC [Comp Blood Count Auto Diff] IN AM Labs on day of discharge: Labs from last 24 hours 03/22/17 03/22/17 03/21/17 05:26 05:26 22:32 WBC 8.6 RBC 3.43 L Hgb 9.9 L Hct 30.1 L MCV 87.8 MCH 29 MCHC 32.9 RDW 14.4 Plt Count 248 MPV 9.6 Neut % (Auto) 51.6 Lymph % (Auto) 34.7 [place] % (Auto) 8.4 Eos % (Auto) 4.5 Baso % (Auto) 0.1 Neut # (Auto) 4.4 Lymph # (Auto) 3.0 [place] # (Auto) 0.7 Eos # (Auto) 0.4 Baso # (Auto) 0.0 Immature Gran % 0.7 Nucleated RBC % 0.0 Immature Gran # 0.06 Nucleated RBCs # 0.00 Sodium 144 Potassium 3.2 L 3.6 Chloride 104 Carbon Dioxide 30 Anion Gap 13.2 BUN 4 L Creatinine 0.40 L GFR Calculation 97 BUN/Creatinine Ratio 10.00 Glucose 106 Calculated Osmolality 282.8 Calcium 8.1 L Magnesium 2.0 DS: Provider Date of admission: 03/15/17 17:21 Primary care physician: Cyn Cooley NP Attending physician on admission: Blu Reed DO Consults: 03/15/17 19:18 Consult to Case Mgmt/Social Srvs [CONS] Routine Reason for Case Mgmt/Social Srvs: Rehab Discharge Planning Consult to Occupational Therapy [CONS] Routine Reason for Occupational Therapy: Weakness Consult to Physical Therapy [CONS] Routine Reason for Physical Therapy: Weakness Consult to Physician [CONS] Routine Comment: Consulting Provider: Jack Horn Consulting Provider Notified: Yes When should Consulting Provider be notified: Now Person Notified: genevievedoug hall Date Notified: 03/16/17 Time Notified: 08:01 03/16/17 12:16 Consult to Case Mgmt/Social Srvs [CONS] Routine Reason for Case Mgmt/Social Srvs: Rehab Home Health Equipment Consult Comment: Bedside Commode, CPM, Walker Consult to Physical Therapy [CONS] Routine Reason for Physical Therapy: Evaluate and Treat Gait Training Consult Comment: Left hip ANTERTIOR precautions, R hip posterior precautions 03/19/17 23:53 Consult to Physician [CONS] Routine Comment: Consulting Provider: Cardiology - [facility] Discharging clinician: Luisa Mccurdy MD Expected date of discharge: 03/22/17
[2017-03-22 12:57] VITALS: BP 165/73
== END 2017-03-22 12:20 | DRG 470 ==
LOC: EDBD → EDUNIT# → N.ED 16:32 → N.EDINP 17:21 → SUATTDRO 17:21 → N.EDINP 18:24 → N.3E 18:35 → N.TELES 03-19 22:22
PROVIDERS: ADMIT Internal Medicine; ATTEND Internal Medicine

== ENCOUNTER 2017-05-15 09:51 | Inpatient (IN) ==
[2017-05-15] MEDS ORDERED: FUROSEMIDE 100 MG/10 ML VIAL ONE (10:12)
[2017-05-15] MEDS ORDERED: FUROSEMIDE 40 MG/4 ML VIAL IV STA (10:15)
[2017-05-15 10:37] LABS: Apearance,Urine CLOUDY (Clear); Bilirubin,Urine Negative (Negative); Blood, Urine Moderate mg/dL (Negative); Glucose,Urine (UA) Negative (Negative); Ketones,Urine Negative (Negative); Mucus,Urine Occasional /LPF (Occasional); Nitrite,Urine Negative (Negative); Protein,Urine Negative; RBC,Urine 17 /HPF (0-4); Urine Color Straw (Yellow); Urine Specific Gravity 1.003 (1.001-1.035); Urine Urobilinogen < 2.0 EU/DL (0.2-1.0); WBC,Urine 575 /HPF (0-6)
[2017-05-15] MEDS ORDERED: LEVOFLOXACIN INJ 500 MG in PREMIX 1 EACH IV STA (10:40)
--- NOTE | 2017-05-15 11:04 | CT Report ---
CT abdomen pelvis wo con Indication: Diffuse abdominal tenderness Comparison: CT pelvis dated October 28, 2012 Technique: Multiple axial tomographic images of the abdomen and pelvis were obtained without the use of intravenous contrast. Findings: Mild dependent change of the lungs present. No worrisome focal hepatic abnormality. Gallbladder somewhat isoattenuating. Question biliary sludge. The pancreas is grossly unremarkable. The spleen is grossly unremarkable. The bilateral adrenal glands are grossly unremarkable. [id number] bilateral cortical atrophy. Evaluation of pelvis is significantly limited secondary to metallic streak artifact from bilateral hip prostheses. Urinary bladder appears collapsed about a Jenkins catheter. Status post hysterectomy. There is no evidence of gastrointestinal obstruction or acute appendicitis. Marked atherosclerotic calcifications demonstrated. Diffuse osteopenia. Degenerative change and scoliosis of the spine present. IMPRESSION: No convincing CT evidence of acute intra-abdominal abnormality. Biliary sludge and status post hysterectomy. Other/detailed findings as above. The CT exam was performed using one or more of the following dose reduction techniques: Automated exposure control, adjustment of the mA and/or kV according to patient size, or use of iterative reconstruction technique. PROCEDURE INTERPRETED AT [facility] DEPARTMENT OF RADIOLOGY Final Report Signed by: Dr Esau Johnson
[2017-05-15] MEDS ORDERED: LEVOFLOXACIN INJ 100 ML IV ONE (11:08)
--- NOTE | 2017-05-15 11:22 | XRay Report ---
XR chest 1V portable Indication: SOB Comparison: Chest x-ray dated April 10, 2017 Technique: Single frontal view of the chest. Findings: Mild cardiomegaly, unchanged. Chronic change of the lungs without focal consolidation, pleural effusion, or pneumothorax. Visualized osseous and surrounding soft tissue structures appear grossly unchanged. IMPRESSION: Stable mild cardiomegaly without carissa pulmonary edema. PROCEDURE INTERPRETED AT [facility] DEPARTMENT OF RADIOLOGY Final Report Signed by: Dr Esau Johnson
[2017-05-15 11:29] LABS: Basophils % 0.1 % (0.0-0.8); Eosinophils # 0.2 10*3/uL (0.0-0.87); Eosinophils % 1.5 % (0.00-10.9); Hematocrit 44.4 VOL% (35.7-47.0); Hemoglobin 14.7 GM/DL (12.0-16.0); Immature Granulocytes % 0.8 %; Immature Granulocytes Absolute 0.12 #; Lymphocytes # 2.7 10*3/uL (1.4-4.0); Lymphocytes % 17.1 % (21.3-54.2); Mean Corpuscular HGB Conc 33.1 GM/DL (32-36); Mean Corpuscular Hemoglobin 29 PG (27-34); Mean Corpuscular Volume 88.1 FL (87-102); Mean Platelet Volume 9.8 FL (9.6-12.0); Monocytes % 6.4 % (1.7-12.7); Neutrophils # 11.7 10*3/uL (1.4-7.4); Neutrophils % 74.1 % (38.7-73.9); Platelet Count 222 T/CUMM (130-400); Red Blood Count 5.04 MC/CUMM (3.8-5.5); Red Cell Distribution Width 14.7 % (9.3-17.3); White Blood Count 15.8 T/CUMM (4-12)
[2017-05-15 12:11] LABS: Albumin 3.6 G/DL (3.4-5.0); Bilirubin,Total 0.5 MG/DL (0.2-1.0); Calcium 9.4 MG/DL (8.5-10.1); Osmolality,Calculated 266.4 MOS/KG (273-304); Potassium 4.1 MMOL/L (3.5-5.1); Total Protein 7.5 G/DL (6.4-8.3); Troponin I Only 0.674 NG/ML (0.00-0.045)
--- NOTE | 2017-05-15 12:29 | Emergency Department Note ---
João Rosenthal Mantricia, am scribing for, and in the presence of, Aashish Reyes MD 10:07. Eric Rosenthal Phillip K, MD, personally performed the services described in this documentation, ascribed by Jayce Moyer in my presence, and it is both accurate and complete . Arrival - Arrival Chief Complaint: Shortness of Breath Stated Complaint: shortness of breath ED Nursing Triage Note: Brought in per EMS from home with c/o shortness of breath onset this am. +dyspnea on exertion. Denies cough. Denies pain. Mode of Arrival: Stretcher Limitations: No Limitations Source: Patient - History of Present Illness HPI Narrative: Pt is an 86 y/o white female arriving to Ed by EMS with c/o SOB and UGARTE that onset this morning. Pt has a PMHx of dementia and is a poor historian. She denies sxs that she recently confirmed. However, she does seem to be compliant with abdominal pain. She states that her PCP is in [place], [place]. No other complaints were reported to ED. Onset (ago): hour(s) Consistency: constant Severity: mild Date of Last Menstrual Period: PM Allergies/Adverse Reactions: Allergies Allergy/AdvReac Type Severity Reaction Status Date / Time Amoxicillin Allergy Unknown/Unable Verified 05/15/17 10:03 to obtain Sulfa (Sulfonamide Allergy ITCHING Verified 03/16/17 06:36 Antibiotics) codeine AdvReac Agitated Verified 03/16/17 06:36 Home Medications: Home Medications Medication Instructions Recorded Confirmed Type Fludrocortisone [Florinef] 0.1 mg PO DAILY 04/26/16 05/15/17 History Midodrine [Proamatine] 5 mg PO DAILY 04/26/16 05/15/17 History Potassium Chloride [Klor-Con] 20 meq PO TID 04/26/16 05/15/17 History Travoprost 0.004% Oph Soln 1 drop BOTH EYES BEDTIME 04/26/16 05/15/17 History [Travatan Z] Brimonidine/Timolol Oph Soln 1 drop BOTH EYES BID 11/09/16 05/15/17 History [Combigan] Cyproheptadine Tab [Periactin Tab] 4 mg PO TID 11/09/16 05/15/17 History Donepezil [Aricept] 5 mg PO BEDTIME 11/09/16 05/15/17 History Gabapentin 100 mg PO BEDTIME 11/09/16 05/15/17 History cycloSPORINE OPH EMUL [Restasis] 1 drop BOTH EYES Q12H 11/09/16 05/15/17 History Metoprolol Tartrate Tab [Lopressor 50 mg PO BID #60 tablet 11/17/16 05/15/17 Rx Tab] Pantoprazole Tab [Protonix Tab] 40 mg PO DAILY #30 tablet 11/17/16 05/15/17 Rx Aspirin EC Tab 81 mg PO QPM 03/15/17 05/15/17 History Ziprasidone Cap [Geodon Cap] 20 mg PO Q6H PRN #30 capsule 03/22/17 05/15/17 Rx Digoxin Tab [Lanoxin Tab] 0.125 mg PO DAILY 04/10/17 05/15/17 History Levothyroxine Tab [Synthroid Tab] 50 mcg PO DAILY 04/10/17 05/15/17 History Multivit-Min/Iron/Folic/Lutein 1 each PO DAILY 05/15/17 05/15/17 History [Centrum Silver Women Tablet] Spironolactone [Aldactone] 25 mg PO BID 05/15/17 05/15/17 History amLODIPine [Norvasc] 2.5 mg PO QAM 05/15/17 05/15/17 History Review of System - Review of System Constitutional: Absent: chills, diaphoresis, fever Eyes: Absent: pain Respiratory: Present: other (SOB). Absent: cough Cardiovascular: Present: dyspnea on exertion. Absent: chest pain Gastrointestinal: Present: abdominal pain. Absent: nausea, vomiting Medical,Surgical,& Family Hx - Medical History Cardio: History of: Cardiac Dysrhythmia (History of paroxysmal atrial fibrillation), Hypertension, Cardiovascular Problems (Daughter reports significant orthostasis) Psychological: History of: Behavior Problems, Depression, Psychiatric Problems ( visual hallucinations aeb seeing people coming in her house and talking to) No history of: Violent Behavior Neurology: History of: Dementia, TIA Endocrine: History of: Dyslipidemia Genitourinary: History of: Recurring Urinary Tract Infections Gastrointestinal: History of: GERD - Surgical History Neurologic Surgeries: Surgical HX of: Neurologic Surgery (Daughter reports multiple back surgeries in the past) Orthopedic Surgeries: Surgical HX of;: Orthopedic Surgery (Repair of left femoral neck fracture), Spinal Surgery (Numerous back surgeries), Total Hip Replacement (right), Total Knee Replacement - Family History Family History: Reports;: Family Heart Disease (Mother, father), Family Hypertension (Mother, father, sister, brother) - Social History Smoking Status: Never smoker Exam Vital Signs: Vital Signs Temperature 97.1 F L 05/15/17 09:51 Pulse Rate 89 05/15/17 10:00 Respiratory Rate 22 05/15/17 10:00 Blood Pressure 105/64 05/15/17 09:51 O2 Sat by Pulse Oximetry 85 L 05/15/17 09:51 - General General appearance: alert, in no apparent distress - Head Head exam: Present: atraumatic, normocephalic, normal inspection - Eye Eye exam: Present: normal appearance, PERRL, EOMI - ENT ENT exam: Present: normal oropharynx, mucous membranes dry, TM's normal bilaterally, normal external ear exam - Neck Neck exam: Present: normal inspection, full ROM, trachea midline. Absent: tenderness - Chest Chest inspection: Present: normal inspection, symmetric chest wall rise. Absent : tenderness - Respiratory Respiratory exam: Present: rales - Cardiovascular Cardiovascular exam: Present: regular rate, irregular rhythm, normal heart sounds - Abdominal Exam Abdominal exam: Present: soft, tenderness (diffused), normal bowel sounds. Absent: distention, guarding, rebound - Extremities Exam Extremities exam: Present: normal inspection, full ROM, normal capillary refill. Absent: tenderness, pedal edema - Back Exam Back exam: Present: normal inspection, full ROM. Absent: tenderness - Neurological Exam Neurological exam: Present: alert, oriented X3, CN II-XII intact, normal gait, reflexes normal - Psychiatric Psychiatric exam: Present: normal affect, normal mood - Skin Skin exam: Present: warm, dry, intact, normal color Results - Labs CBC & BMP: 05/15/17 11:03 05/15/17 11:03 Lab Results: I have reviewed the patients labs - EKG EKG results: interpreted by ABBI (Atrial fibrillation, left bundle branch block) - Diagnostic Findings Procedure: Chest x-ray: report reviewed by me (Stable mild cardiomegaly without carissa pulmonary edema.), CT Abdomen and Pelvis: report reviewed by me (No convincing CT evidence of acute intra-abdominal abnormality. Biliary sludge and status post hysterectomy.) Disposition Clinical Impression: Urinary tract infection, Elevated troponin, Left bundle branch block, Dementia Case discussed with: patient's physician Disposition: Still a Patient Condition: Guarded Additional Instructions: Admit to the hospitalist
--- NOTE | 2017-05-15 13:04 | EKG Report ---
Stationary ECG Study [facility] ER Test Date: 05/15/2017 10:05:55 AM Pat Name: NELLA SERNA [facility] Gender: F Rand Maker: : 1930 Requested by: Aashish Larsen Order Number: [id number] Reading MD: PEREZ HERNÁNDEZ Intervals [place] Rate: 87 P: 999 [place]: 0 QRS: -50 QRSD: 137 T: 114 QT: 389 QTc: 434 Interpretive Statements ATRIAL FIBRILLATION MARKED LEFT AXIS DEVIATION LEFT BUNDLE BRANCH BLOCK Electronically Signed On 05-16-17 05:26:55 CDT by PEREZ HERNÁNDEZ [email or web address]
--- NOTE | 2017-05-15 13:34 | Hospitalist History & Physical ---
<Travis Flores - Last Filed: 05/15/17 14:15> Assessment and Plan - Time spent with patient Time spent with patient: Greater than 30 minutes (1) Atrial fibrillation with RVR Status: Acute Assessment and plan: Admit to CCU. Start on IV diltiazem drip. Continue digoxin. Lovenox. Current Visit: No (2) Urinary tract infection Status: Acute Assessment and plan: WBC 15.8. Urine culture is pending. Patient started on Levaquin and ED. Will continue this on the floor. Current Visit: Yes (3) Elevated troponin Status: Acute Assessment and plan: Patient does have a troponin of 0.674. This appears to be new for this patient as her baseline appears to be around 0.015. She has been admitted to the CCU. We will trend her troponins and consult cardiology. Current Visit: Yes (4) HTN (hypertension) Status: Chronic Assessment and plan: Patient has labile hypertension with periods of hypotension for which she has been in Trendelenburg in the ED. Patient is being admitted to the CCU for further evaluation and close observation. We will continue her home medications as appropriate. Current Visit: No Qualifiers: Hypertension type: essential hypertension Qualified Code(s): I10 - Essential (primary) hypertension (5) Dementia Status: Acute Current Visit: Yes History of Present Illness Chief complaint: SOB/UGARTE History of present illness: Ms. Modi is a 86 year old white female with a past medical history significant for atrial fibrillation, hypertension and hypotension, advanced Alzheimer's who presents to the ED via EMS with complaints of shortness of breath and dyspnea on exertion having onset 1 week ago. The patient is a poor historian and her son and [id number], who are at bedside, provided much of the history. Family states that the patient has had increasing fluid buildup over the last week with increased weight gain and decreased appetite. The patient and family deny a history of congestive heart failure or pulmonary edema. Patient does complain of abdominal pain, however, the fbeqhnry-by-ahc states that the patient is not always able to make appropriate associations between pain and body parts. On exam, the patient appears to be in no acute medical distress. She is satting in the upper 80s to lower 90s on 3 L of O2 per nasal cannula. There is no evidence of cyanosis or edema. Patient does complain of a dry mouth. CT of the abdomen and pelvis is negative for any acute abnormalities. Chest x-ray is negative for cardiopulmonary pathology. Lab work reveals: WBC 15.8, hemoglobin 14.7, hematocrit 44.4, sodium 133, potassium 4.1, BUN 7, creatinine 0.70, serum glucose 144. Case has been discussed with both Dr. Reyes and Dr. Pacheco and the patient will be admitted to the hospital medicine service for further evaluation and treatment. Family states that the patient is a DO NOT RESUSCITATE. Home medications have been reviewed and reconciled. Home Medications Medication Instructions Recorded Confirmed Type Fludrocortisone [Florinef] 0.1 mg PO DAILY 04/26/16 05/15/17 History Midodrine [Proamatine] 5 mg PO DAILY 04/26/16 05/15/17 History Potassium Chloride [Klor-Con] 20 meq PO TID 04/26/16 05/15/17 History Travoprost 0.004% Oph Soln 1 drop BOTH EYES BEDTIME 04/26/16 05/15/17 History [Travatan Z] Brimonidine/Timolol Oph Soln 1 drop BOTH EYES BID 11/09/16 05/15/17 History [Combigan] Cyproheptadine Tab [Periactin Tab] 4 mg PO TID 11/09/16 05/15/17 History Donepezil [Aricept] 5 mg PO BEDTIME 11/09/16 05/15/17 History Gabapentin 100 mg PO BEDTIME 11/09/16 05/15/17 History cycloSPORINE OPH EMUL [Restasis] 1 drop BOTH EYES Q12H 11/09/16 05/15/17 History Metoprolol Tartrate Tab [Lopressor 50 mg PO BID #60 tablet 11/17/16 05/15/17 Rx Tab] Pantoprazole Tab [Protonix Tab] 40 mg PO DAILY #30 tablet 11/17/16 05/15/17 Rx Aspirin EC Tab 81 mg PO QPM 03/15/17 05/15/17 History Ziprasidone Cap [Geodon Cap] 20 mg PO Q6H PRN #30 capsule 03/22/17 05/15/17 Rx Digoxin Tab [Lanoxin Tab] 0.125 mg PO DAILY 04/10/17 05/15/17 History Levothyroxine Tab [Synthroid Tab] 50 mcg PO DAILY 04/10/17 05/15/17 History Multivit-Min/Iron/Folic/Lutein 1 each PO DAILY 05/15/17 05/15/17 History [Centrum Silver Women Tablet] Spironolactone [Aldactone] 25 mg PO BID 05/15/17 05/15/17 History amLODIPine [Norvasc] 2.5 mg PO QAM 05/15/17 05/15/17 History Allergies Allergy/AdvReac Type Severity Reaction Status Date / Time Amoxicillin Allergy Unknown/Unable Verified 05/15/17 10:03 to obtain Sulfa (Sulfonamide Allergy ITCHING Verified 03/16/17 06:36 Antibiotics) codeine AdvReac Agitated Verified 03/16/17 06:36 Medical,Surgical,& Family Hx - Medical History Cardio: History of: Cardiac Dysrhythmia (History of paroxysmal atrial fibrillation), Hypertension, Cardiovascular Problems (Daughter reports significant orthostasis) Psychological: History of: Behavior Problems, Depression, Psychiatric Problems ( visual hallucinations aeb seeing people coming in her house and talking to) No history of: Violent Behavior Neurology: History of: Dementia, TIA Endocrine: History of: Dyslipidemia Genitourinary: History of: Recurring Urinary Tract Infections Gastrointestinal: History of: GERD - Surgical History Neurologic Surgeries: Surgical HX of: Neurologic Surgery (Daughter reports multiple back surgeries in the past) Orthopedic Surgeries: Surgical HX of;: Orthopedic Surgery (Repair of left femoral neck fracture), Spinal Surgery (Numerous back surgeries), Total Hip Replacement (right), Total Knee Replacement - Family History Family History: Reports;: Family Heart Disease (Mother, father), Family Hypertension (Mother, father, sister, brother) - Social History Smoking Status: Never smoker Frequency of Alcohol Use: None Type of Drug Use: None Marital Status: Lives With:: Children (Son and trrnixdu-cf-xol) Functional capacity: uses cane/walker (Patient is unstable on her feet and her mobility has decreased dramatically since March 2017.) ROS unobtainable: due to dementia Exam - Constitutional Vitals: Period Temp Pulse Resp BP Sys/North Pulse Ox Last 24 Hr 97.1 F-97.1 F 87-89 22-22 105-105/64-64 85 General appearance: normal weight, no acute distress - Head Head exam: Present: normal inspection, normocephalic, atraumatic - Eye Eye exam: Present: EOMI Pupils: Present: DOM - Neck Neck exam: Present: normal inspection. Absent: lymphadenopathy, tenderness - Respiratory Respiratory exam: Present: clear to auscultation bilaterally. Absent: rales, rhonchi, wheezes - Cardiovascular Cardiovascular exam: Present: irregular rhythm, tachycardia - GI/Abdominal GI/Abdominal exam: Present: normal bowel sounds, soft. Absent: mass, organomegaly, tenderness - Extremities Exam Extremities exam: Present: normal inspection. Absent: edema - Neurological Exam Neurological exam: Present: alert, altered, reflexes normal - Psychiatric Psychiatric exam: Present: other (Unable to assess due to the patient's advanced dementia) - Skin Skin exam: Present: normal color, dry, intact Results - Labs CBC & BMP: 05/15/17 11:03 05/15/17 11:03 Lab Results: I have reviewed the past 24 hour labs - EKG EKG results: interpreted by ABBI EKG shows: atrial fibrillation - Diagnostic Findings Procedure: Chest x-ray: image reviewed by me, report reviewed by me ( Unremarkable), CT Abdomen and Pelvis: image reviewed by me, report reviewed by me (Unremarkable) <Fern Pacheco - Last Filed: 05/15/17 15:54> Assessment and Plan (1) Urinary tract infection Status: Acute Assessment and plan: cont levaquin for uti Current Visit: Yes (2) Atrial fibrillation with RVR Status: Acute Assessment and plan: agree with above Current Visit: No (3) Dementia Status: Acute Assessment and plan: restart home meds Current Visit: Yes (4) Elevated troponin Status: Acute Assessment and plan: no cardiology consult Current Visit: Yes (5) Hyponatremia Status: Acute Assessment and plan: ns gentle Current Visit: Yes History of Present Illness History of present illness: Ms. Modi is a 86 year old female seen and examined. Patient is unstable and in atrial fibrillation. Discussed code status with daughter in law, she has a DNR. Exam - Constitutional Vitals: Period Temp Pulse Resp BP Sys/North Pulse Ox Last 24 Hr 97.1 F-97.1 F 83-102 16-22 103-124/64-88 85-91 - Eye Eye exam: Absent: scleral icterus Pupils: Present: normal accommodation - Extremities Exam Extremities exam: Present: normal capillary refill Results - Labs CBC & BMP: 05/15/17 11:03 05/15/17 11:03
[2017-05-15] MEDS ORDERED: cycloSPORINE OPH EMUL 1 VIAL BOTH EYES SCH (16:26)
[2017-05-15] MEDS ORDERED: ENOXAPARIN 40 MG/0.4 ML SYRINGE SUBCUT SCH (16:26)
[2017-05-15] MEDS ORDERED: PANTOPRAZOLE 40 MG TABLET PO SCH (16:26)
[2017-05-15] MEDS ORDERED: DILTIAZEM INJ 100 MG in SODIUM CHLORIDE 0.9% 100 ML IV SCH (16:26)
[2017-05-15] MEDS ORDERED: SODIUM CHLORIDE 0.9% 1,000 ML IV SCH (16:26)
[2017-05-15] MEDS ORDERED: ONDANSETRON 4 MG/2 ML VIAL IV PRN (16:26)
[2017-05-15] MEDS ORDERED: ACETAMINOPHEN 325 MG TABLET PO PRN (16:26)
[2017-05-15] MEDS ORDERED: DILTIAZEM INJ 100 MG in SODIUM CHLORIDE 0.9% 100 ML IV PRN (16:48)
[2017-05-15] MEDS: LEVOTHYROXINE 50 MCG TABLET PO SCH (16:51)
[2017-05-15] MEDS: DIGOXIN 0.125 MG TABLET PO SCH (16:51)
[2017-05-15] MEDS: METOPROLOL TARTRATE 50 MG TABLET PO SCH ×2 (16:51→22:27)
[2017-05-15] MEDS: SODIUM CHLORIDE 0.9% 500 ML IV SCH (17:51)
[2017-05-15] MEDS: ZIPRASIDONE 20 MG CAPSULE PO PRN (17:53)
[2017-05-15 18:15] LABS: ABG Base Excess 5.3 MMOL/L (-2.5-2.5); ABG HCO3 28.8 MMOL/L (20-26); ABG Oxygen Saturation 81.8 % (95-100); ABG PCO2 35.8 MM HG (35-48); ABG PH 7.506 (7.35-7.45); ABG PO2 44.6 MM HG (80-95); ABG TCO2 24.4 MMOL/L (23-27); Allen Test Positive
[2017-05-15] MEDS ORDERED: ENOXAPARIN 60 MG/0.6 ML SYRINGE SUBCUT ONE (18:30)
[2017-05-15 18:32] LABS: INR 1.1; PT Patient Result 11.8 SECS; Partial Thromboplastin Time 23.3 SECS (0-40)
[2017-05-15] MEDS: ASPIRIN EC 81 MG TABLET PO SCH (19:04)
--- NOTE | 2017-05-15 20:51 | Ultrasound Report ---
US venous doppler LE BI Indication: Lower extremity swelling and pain. Comparison: None. Technique: Using a transcutaneous probe, grayscale, spectral Doppler, and color Doppler images of the bilateral lower extremity venous structures were captured and stored. Grayscale images prior to and following compression were obtained. Interrogated venous structures include the bilateral common femoral vein, superficial femoral vein (proximal, mid, and distal), and popliteal vein. Findings: Venous thrombus is demonstrated within the caudal aspect of the left femoral vein and throughout the left popliteal vein. There is no color-flow present in the segments. the patent interrogated venous segments demonstrate presence of both color flow and spectral flow. Impression: 1. Venous thrombus involving the caudal left femoral vein and popliteal vein is present as detailed. Critical findings regarding venous thrombus were discussed with Robert Chaney RN, 2016 hours, date of exam. 05/15/2017 8:13 PM PROCEDURE INTERPRETED AT [facility] DEPARTMENT OF RADIOLOGY Final Report Signed by: Dr. Phu Savage
[2017-05-15] MEDS: PANTOPRAZOLE 40 MG TABLET PO SCH (22:27)
[2017-05-15] MEDS: TRAVOPROST 0.004% OPH SOLN 2.5 ML BOTTLE BOTH EYES SCH (22:27)
[2017-05-15] MEDS: DONEPEZIL 5 MG TABLET PO SCH (22:27)
[2017-05-15] MEDS: BRIMONIDINE/TIMOLOL OPH SOLN 5 ML BOTTLE BOTH EYES SCH (22:31)
[2017-05-15] MEDS: cycloSPORINE OPH EMUL 1 VIAL BOTH EYES SCH (22:32)
[2017-05-16 02:39] LABS: Basophils % 0.1 % (0.0-0.8); Eosinophils # 0.2 10*3/uL (0.0-0.87); Eosinophils % 1.2 % (0.00-10.9); Hematocrit 36.8 VOL% (35.7-47.0); Hemoglobin 12.3 GM/DL (12.0-16.0); Immature Granulocytes % 0.7 %; Immature Granulocytes Absolute 0.09 #; Lymphocytes # 3.9 10*3/uL (1.4-4.0); Lymphocytes % 32.5 % (21.3-54.2); Mean Corpuscular HGB Conc 33.4 GM/DL (32-36); Mean Corpuscular Hemoglobin 29 PG (27-34); Mean Corpuscular Volume 87.4 FL (87-102); Mean Platelet Volume 9.5 FL (9.6-12.0); Monocytes # 0.8 10*3/uL (0.11-0.8); Monocytes % 6.7 % (1.7-12.7); Neutrophils # 7.1 10*3/uL (1.4-7.4); Neutrophils % 58.8 % (38.7-73.9); Platelet Count 193 T/CUMM (130-400); Red Blood Count 4.21 MC/CUMM (3.8-5.5); Red Cell Distribution Width 14.7 % (9.3-17.3); White Blood Count 12.1 T/CUMM (4-12)
[2017-05-16 03:30] LABS: Calcium 8.5 MG/DL (8.5-10.1); Osmolality,Calculated 262.7 MOS/KG (273-304); Potassium 3.6 MMOL/L (3.5-5.1); Risk Ratio 7.68; VLDL CHOLESTEROL 97.8 MG/DL
[2017-05-16] MEDS: ENOXAPARIN 60 MG/0.6 ML SYRINGE SUBCUT SCH ×2 (07:21→18:31)
[2017-05-16] MEDS: SODIUM CHLORIDE 0.9% 500 ML IV SCH ×2 (07:43→07:44)
[2017-05-16] MEDS ORDERED: FLUDROCORTISONE 0.1 MG TABLET PO SCH (09:00)
[2017-05-16] MEDS: MULTIVITAMIN (CENTRUM) TABLET PO SCH (09:15)
[2017-05-16] MEDS: DIGOXIN 0.125 MG TABLET PO SCH (09:15)
[2017-05-16] MEDS: PANTOPRAZOLE 40 MG TABLET PO SCH ×2 (09:15→20:49)
[2017-05-16] MEDS: LEVOTHYROXINE 50 MCG TABLET PO SCH (09:15)
[2017-05-16] MEDS: METOPROLOL TARTRATE 50 MG TABLET PO SCH ×2 (09:16→20:51)
[2017-05-16] MEDS: cycloSPORINE OPH EMUL 1 VIAL BOTH EYES SCH ×2 (09:16→20:50)
[2017-05-16] MEDS: BRIMONIDINE/TIMOLOL OPH SOLN 5 ML BOTTLE BOTH EYES SCH ×2 (09:16→20:50)
[2017-05-16] MEDS: LEVOFLOXACIN INJ 500 MG in PREMIX 1 EACH IV SCH (11:37)
--- NOTE | 2017-05-16 11:50 | IR History and Physical Update ---
IR Pre-Procedure - History and Physical H&P was reviewed, the patient examined and there: are no changes in the patients condition since last H&P was completed. Reason for procedure:: 86-year-old demented female with pulmonary embolus and left leg DVT. Frequent falls at home, therefore contraindication anticoagulation. Asked to place IVC filter. - Dictation Physical: refer to H&P completed by admitting physician - Physical Exam Vital Signs: Last Vital Signs Temp 97.9 F 05/16/17 08:00 Pulse 66 05/16/17 11:00 Resp 16 05/16/17 11:00 BP 121/57 05/16/17 11:00 Pulse Ox 93 L 05/16/17 11:00 - Sedation IR anesthesia plan for sedation: none ASA Class: III - Risks Risks: Procedures explained. Risks discussed include, but not limited to, the following:[IVC thrombosis] All questions answered. The following alternatives were discussed:[None] Risks and benefits discussed with: significant Consent obtained from: significant ([id number], primary caregiver) Assessment and Plan - Time spent with patient Time spent with patient: Less than 30 minutes
--- NOTE | 2017-05-16 14:38 | Post Interventional Procedure ---
Pre-op diagnosis: DVT, contraindication to anticoagulation Post-op diagnosis: same Procedure: IVC filter placement Contrast: Omni 350, 15 cc Flouroscopy: 1.3 min Radiologist: Ryan Mace Anesthesia: local Specimens: none sent Estimated blood loss: none Complications: none Condition: stable Assessment and Plan - Time spent with patient Time spent with patient: Less than 30 minutes
--- NOTE | 2017-05-16 14:55 | Hospitalist Progress Note ---
Assessment and Plan (1) Urinary tract infection Status: Acute Assessment and plan: Growing gram-negative rods, continue levaquin Current Visit: Yes (2) Atrial fibrillation with RVR Status: Acute Assessment and plan: afib rate controlled on metoprolol, cont lovenox Current Visit: No (3) Dementia Status: Acute Assessment and plan: Geodon Current Visit: Yes (4) Elevated troponin Status: Acute Assessment and plan: due to strain from PE Current Visit: Yes (5) Hyponatremia Status: Acute Assessment and plan: ns gentle hydration Current Visit: Yes (6) Anemia Status: Acute Assessment and plan: Continue Protonix and monitor hemoglobin Current Visit: Yes (7) Left femoral vein DVT Status: Acute Assessment and plan: Venous thrombosis in left femoral vein and left popliteal. Continue treatment dose Lovenox. Will switch to Eliquis. Current Visit: Yes (8) Hypothyroidism Status: Chronic Assessment and plan: Continue levothyroxine Current Visit: No Hospitalist: Subjective Interval history: patient feeling better today. still requiring 6 liters. good urine output. Updated daughter. Filter will be placed today, no lyndsey Exam - Constitutional Vitals: Period Temp Pulse Resp BP Sys/North Pulse Ox Last 24 Hr 96.7 F-97.9 F 64-116 15-21 82-167/47-105 81-96 Exam: Heart Rate-[RRR] Lungs-[diminished but clear ] GI-[+bs soft, NT] Ext-[no edema] Neuro [Motor 5/5], [alert and oriented times 3] psych [normal mood and affect] General [no acute distress] Results - Labs CBC & BMP: 05/16/17 02:35 05/16/17 02:35 Lab Results: I have reviewed the past 24 hour labs Labs: Urine growing gram-negative rods.
[2017-05-16] MEDS ORDERED: SODIUM CHLORIDE 0.9% 1,000 ML IV SCH (15:00)
--- NOTE | 2017-05-16 15:06 | Interventional Radiology Rpt ---
IR IVC filter placement Indication: DVT. Anticoagulation contraindication with frequent falls. IVC FILTER PLACEMENT Description: A formal timeout was performed. Maximum sterile barrier technique was used. The right groin was prepped and draped in a sterile fashion. Sonographic evaluation demonstrates a patent and compressible right common femoral vein. 5 cc 1% lidocaine was infused subcutaneously. Under sonographic guidance, a micropuncture needle was advanced into the target vein. A captured sonographic image documents the position of the needle. The needle was exchanged over a wire for a vascular dilator with the tip in the distal IVC. An inferior venacavogram was performed. Normal anatomy was present. The lowest renal vein inflow was identified. The dilator was exchanged over a wire for a Celect IVC filter sheath. The filter was then advanced and deployed such that the apex is at the lowest renal vein inflow. The deployment apparatus was removed and hemostasis achieved with manual compression. Medications: None. Contrast: Omnipaque 350, 15 cc. Fluoroscopy: 1.3 minutes. Impression: Infrarenal IVC filter placement as described. PROCEDURE INTERPRETED AT [facility] DEPARTMENT OF RADIOLOGY Final Report Signed by: Ryan Mace M.D.
[2017-05-16] MEDS: ZIPRASIDONE 20 MG CAPSULE PO PRN (17:53)
[2017-05-16] MEDS: ASPIRIN EC 81 MG TABLET PO SCH (18:30)
[2017-05-16] MEDS: TRAVOPROST 0.004% OPH SOLN 2.5 ML BOTTLE BOTH EYES SCH (20:50)
[2017-05-16] MEDS: DONEPEZIL 5 MG TABLET PO SCH (20:50)
[2017-05-16] MEDS ORDERED: SIMVASTATIN 20 MG TABLET PO SCH (21:00)
[2017-05-17] MEDS: ZIPRASIDONE 20 MG CAPSULE PO PRN (03:40)
[2017-05-17 04:27] LABS: Basophils % 0.2 % (0.0-0.8); Eosinophils # 0.2 10*3/uL (0.0-0.87); Eosinophils % 2.1 % (0.00-10.9); Hematocrit 34.7 VOL% (35.7-47.0); Hemoglobin 11.8 GM/DL (12.0-16.0); Lymphocytes # 3.7 10*3/uL (1.4-4.0); Mean Corpuscular Hemoglobin 29 PG (27-34); Mean Corpuscular Volume 86.5 FL (87-102); Mean Platelet Volume 10.2 FL (9.6-12.0); Monocytes # 0.8 10*3/uL (0.11-0.8); Monocytes % 8.3 % (1.7-12.7); NRBC # 0.02 10*3/uL; Neutrophils # 4.8 10*3/uL (1.4-7.4); Neutrophils % 50.4 % (38.7-73.9); Platelet Count 183 T/CUMM (130-400); Red Blood Count 4.01 MC/CUMM (3.8-5.5); Red Cell Distribution Width 14.5 % (9.3-17.3); White Blood Count 9.6 T/CUMM (4-12)
[2017-05-17 05:06] LABS: Calcium 8.1 MG/DL (8.5-10.1); Osmolality,Calculated 258.1 MOS/KG (273-304); Potassium 3.4 MMOL/L (3.5-5.1)
[2017-05-17] MEDS: ENOXAPARIN 60 MG/0.6 ML SYRINGE SUBCUT SCH (06:43)
[2017-05-17] MEDS ORDERED: FUROSEMIDE 40 MG/4 ML VIAL IV ONE (08:18)
[2017-05-17] MEDS: DIGOXIN 0.125 MG TABLET PO SCH (08:58)
[2017-05-17] MEDS: METOPROLOL TARTRATE 50 MG TABLET PO SCH ×2 (08:58→21:34)
[2017-05-17] MEDS: APIXABAN 5 MG TABLET PO SCH ×2 (08:58→21:38)
[2017-05-17] MEDS: LEVOTHYROXINE 50 MCG TABLET PO SCH (08:58)
[2017-05-17] MEDS: MULTIVITAMIN (CENTRUM) TABLET PO SCH (08:58)
[2017-05-17] MEDS: PANTOPRAZOLE 40 MG TABLET PO SCH ×2 (08:59→21:35)
[2017-05-17] MEDS: BRIMONIDINE/TIMOLOL OPH SOLN 5 ML BOTTLE BOTH EYES SCH ×2 (08:59→21:38)
[2017-05-17] MEDS: cycloSPORINE OPH EMUL 1 VIAL BOTH EYES SCH ×2 (09:02→21:38)
[2017-05-17] MEDS: LEVOFLOXACIN INJ 500 MG in PREMIX 1 EACH IV SCH ×2 (10:19→10:24)
[2017-05-17] MEDS ORDERED: POTASSIUM CHLORIDE 20 MEQ TABLET PO ONE ×2 (12:24→14:00)
--- NOTE | 2017-05-17 12:24 | Hospitalist Progress Note ---
Assessment and Plan (1) Atrial fibrillation with RVR Status: Acute Assessment and plan: She has periodic episodes of bradycardia. Already discussed with family they are not interested in a pacer. afib rate controlled on metoprolol, change to eliquis Current Visit: No (2) Urinary tract infection Status: Acute Assessment and plan: Growing citrobacter koseri, continue levaquin Current Visit: Yes (3) Dementia Status: Acute Assessment and plan: Jose Raul galeas agitation, advance dementia no need for meds Current Visit: Yes (4) Elevated troponin Status: Acute Assessment and plan: due to strain from PE Current Visit: Yes (5) Hyponatremia Status: Acute Assessment and plan: Sodium is worsened with normal saline. We will Hep-Lock saline give 1 dose of Lasix. BNP elevated over 300. Repeat checks x-ray today. Last echo showed an EF of 50% with grade 1/4 diastolic dysfunction and a PAP of 43 Current Visit: Yes (6) Anemia Status: Acute Assessment and plan: Hemoglobin stable, continue Protonix Current Visit: Yes (7) Left femoral vein DVT Status: Acute Assessment and plan: Venous thrombosis in left femoral vein and left popliteal. Switch treatment to Eliquis today will treat for presumptive PEs. Current Visit: Yes (8) Hypothyroidism Status: Chronic Assessment and plan: Continue levothyroxine Current Visit: No (9) Hypokalemia Status: Acute Assessment and plan: Replacing and recheck in a.m. Current Visit: Yes (10) Hyperlipidemia Status: Acute Assessment and plan: Repeat liver profile in a.m. we will start low-dose Lipitor Current Visit: Yes Hospitalist: Subjective Interval history: Patient hemoglobin is stable today. Lock her fluids and have to give her some Lasix as her normal saline is lowering her sodium suggesting that she needs diuresis. Family at bedside. We will switch her from Lovenox to Eliquis. Patient tolerating less oxygen today and looks better. We will move her to the floor Exam - Constitutional Vitals: Period Temp Pulse Resp BP Sys/North Pulse Ox Last 24 Hr 97.6 F-98.8 F 56-87 13-20 80-162/41-98 87-99 Exam: Heart Rate-[RRR] Lungs-[clear GI-[+bs soft, NT] Ext-[no edema] Neuro [Motor 4/5], [alert and oriented times 1] advanced dementia psych [normal mood and flat affect] General [no acute distress] Results - Labs CBC & BMP: 05/17/17 04:06 05/17/17 04:06 Lab Results: I have reviewed the past 24 hour labs Labs: Blood cultures 2 negative no growth. Urine culture growing Citrobacter koseri
--- NOTE | 2017-05-17 13:31 | XRay Report ---
XR chest 1V portable Indication: Shortness of breath Comparison: Chest x-ray 05/15/2017 Technique: Portable AP chest was performed. Findings: The heart is borderline in size, stable. Diffuse intimal calcification of the aorta and ectasia of the thoracic aorta is stable. Pulmonary vasculature demonstrates no specific abnormality. Hilar structures demonstrate fairly symmetric appearance. The lungs appear clear. Bones and soft tissues demonstrate no evidence of acute pathology. IVC filter is present. Impression: 1. No evidence of acute pathology. 05/17/2017 1:28 PM PROCEDURE INTERPRETED AT [facility] DEPARTMENT OF RADIOLOGY Final Report Signed by: Dr. Phu Savage
[2017-05-17] MEDS: ZIPRASIDONE 20 MG CAPSULE PO SCH (15:37)
[2017-05-17] MEDS: ATORVASTATIN 20 MG TABLET PO SCH (21:34)
[2017-05-17] MEDS: DONEPEZIL 5 MG TABLET PO SCH (21:35)
[2017-05-17] MEDS: ZINC OXIDE 16% PASTE 57 GM TUBE TOP SCH (21:35)
[2017-05-17] MEDS: TRAVOPROST 0.004% OPH SOLN 2.5 ML BOTTLE BOTH EYES SCH (21:38)
[2017-05-18 05:34] LABS: Basophils % 0.2 % (0.0-0.8); Eosinophils # 0.2 10*3/uL (0.0-0.87); Hematocrit 35.7 VOL% (35.7-47.0); Hemoglobin 11.7 GM/DL (12.0-16.0); Immature Granulocytes % 1.1 %; Lymphocytes # 3.4 10*3/uL (1.4-4.0); Lymphocytes % 36.4 % (21.3-54.2); Mean Corpuscular HGB Conc 32.8 GM/DL (32-36); Mean Corpuscular Hemoglobin 29 PG (27-34); Mean Corpuscular Volume 87.9 FL (87-102); Mean Platelet Volume 10.3 FL (9.6-12.0); Monocytes # 0.9 10*3/uL (0.11-0.8); Monocytes % 9.7 % (1.7-12.7); Neutrophils # 4.7 10*3/uL (1.4-7.4); Neutrophils % 50.6 % (38.7-73.9); Platelet Count 201 T/CUMM (130-400); Red Blood Count 4.06 MC/CUMM (3.8-5.5); Red Cell Distribution Width 14.8 % (9.3-17.3); White Blood Count 9.3 T/CUMM (4-12)
[2017-05-18 06:02] LABS: Alanine Aminotransferase 17 U/L (13-56); Albumin 2.7 G/DL (3.4-5.0); Alkaline Phosphatase 70 U/L (45-117); Aspartate Amino Transferase 36 U/L (0-37); Bilirubin,Total < 0.39 MG/DL (0.2-1.0); Blood Urea Nitrogen 11 MG/DL (7-18); Calcium 8.5 MG/DL (8.5-10.1); Glucose 115 MG/DL (74-106); Osmolality,Calculated 267.2 MOS/KG (273-304); Potassium 3.6 MMOL/L (3.5-5.1); Sodium 134 MMOL/L (136-145); Total Protein 5.7 G/DL (6.4-8.3)
[2017-05-18] MEDS: APIXABAN 5 MG TABLET PO SCH ×2 (09:54→21:07)
[2017-05-18] MEDS: PANTOPRAZOLE 40 MG TABLET PO SCH ×2 (09:54→21:07)
[2017-05-18] MEDS: DIGOXIN 0.125 MG TABLET PO SCH (09:54)
[2017-05-18] MEDS: ZIPRASIDONE 20 MG CAPSULE PO SCH (09:54)
[2017-05-18] MEDS: METOPROLOL TARTRATE 50 MG TABLET PO SCH ×2 (09:54→21:08)
[2017-05-18] MEDS: ZINC OXIDE 16% PASTE 57 GM TUBE TOP SCH ×2 (09:54→21:20)
[2017-05-18] MEDS: MULTIVITAMIN (CENTRUM) TABLET PO SCH (09:54)
[2017-05-18] MEDS: LEVOTHYROXINE 50 MCG TABLET PO SCH (09:54)
[2017-05-18] MEDS: BRIMONIDINE/TIMOLOL OPH SOLN 5 ML BOTTLE BOTH EYES SCH ×2 (09:54→21:10)
[2017-05-18] MEDS: cycloSPORINE OPH EMUL 1 VIAL BOTH EYES SCH ×2 (09:55→21:09)
[2017-05-18] MEDS: LEVOFLOXACIN INJ 500 MG in PREMIX 1 EACH IV SCH (13:20)
[2017-05-18] MEDS: ZIPRASIDONE 20 MG CAPSULE PO PRN (15:37)
--- NOTE | 2017-05-18 17:15 | Hospitalist Progress Note ---
Assessment and Plan (1) Hypothyroidism Status: Chronic Current Visit: No (2) HTN (hypertension) Status: Chronic Current Visit: No Qualifiers: Hypertension type: essential hypertension Qualified Code(s): I10 - Essential (primary) hypertension (3) Dementia Status: Acute Current Visit: Yes (4) UTI (urinary tract infection) Status: Acute Current Visit: Yes (5) Left femoral vein DVT Status: Acute Assessment and plan: On eliquis Current Visit: Yes (6) Hypokalemia Status: Acute Current Visit: Yes Hospitalist: Subjective Interval history: No acute events overnight. Patient feeling better. Eager for discharge. Possibly tomorrow. Continue eliquis for dvt Continue levaquin for uti Exam - Constitutional Vitals: Period Temp Pulse Resp BP Sys/North Pulse Ox Last 24 Hr 97.1 F-97.6 F 54-64 17-20 111-146/51-73 90-98 General appearance: normal weight - Head Head exam: Present: normocephalic, atraumatic - Eye Eye exam: Present: EOMI Pupils: Present: DOM - ENT ENT exam: Present: normal exam - Neck Neck exam: Present: normal inspection - Respiratory Respiratory exam: Present: clear to auscultation bilaterally. Absent: wheezes - Cardiovascular Cardiovascular exam: Present: regular rate and rhythm - GI/Abdominal GI/Abdominal exam: Present: normal bowel sounds, soft. Absent: tenderness, rebound - Extremities Exam Extremities exam: Present: normal inspection - Back Exam Back exam: Present: normal inspection - Neurological Exam Neurological exam: Present: alert, oriented X3 - Psychiatric Psychiatric exam: Present: normal affect, normal mood - Skin Skin exam: Present: warm, intact Results - Labs CBC & BMP: 05/18/17 04:35 05/18/17 04:35
[2017-05-18] MEDS: POTASSIUM CHLORIDE 20 MEQ PACK PO SCH (21:06)
[2017-05-18] MEDS: ATORVASTATIN 20 MG TABLET PO SCH (21:06)
[2017-05-18] MEDS: DONEPEZIL 5 MG TABLET PO SCH (21:06)
[2017-05-18] MEDS: TRAVOPROST 0.004% OPH SOLN 2.5 ML BOTTLE BOTH EYES SCH (21:09)
[2017-05-19 07:08] LABS: Basophils % 0.1 % (0.0-0.8); Eosinophils # 0.3 10*3/uL (0.0-0.87); Eosinophils % 2.9 % (0.00-10.9); Hematocrit 36.6 VOL% (35.7-47.0); Hemoglobin 12.1 GM/DL (12.0-16.0); Immature Granulocytes % 1.1 %; Immature Granulocytes Absolute 0.12 #; Lymphocytes # 3.8 10*3/uL (1.4-4.0); Lymphocytes % 34.5 % (21.3-54.2); Mean Corpuscular HGB Conc 33.1 GM/DL (32-36); Mean Corpuscular Hemoglobin 29 PG (27-34); Mean Corpuscular Volume 88.8 FL (87-102); Mean Platelet Volume 9.8 FL (9.6-12.0); Monocytes % 8.8 % (1.7-12.7); Neutrophils # 5.8 10*3/uL (1.4-7.4); Neutrophils % 52.6 % (38.7-73.9); Platelet Count 203 T/CUMM (130-400); Red Blood Count 4.12 MC/CUMM (3.8-5.5)
[2017-05-19 07:49] LABS: Calcium 8.7 MG/DL (8.5-10.1); Magnesium 2.1 MG/DL (1.8-2.4); Osmolality,Calculated 265.4 MOS/KG (273-304); Potassium 4.2 MMOL/L (3.5-5.1)
--- NOTE | 2017-05-19 09:03 | Discharge Summary ---
<Travis Flores - Last Filed: 05/19/17 09:00> Hospital Course - Hospital Course Hospital Course: Ms. Modi is a 86 year old white female with advanced dementia who was admitted on 05/15/2017 for further evaluation of shortness of breath with exertion. On admission the patient was noted to have lower extremity edema and was tender to palpation of the legs. Venous doppler showed DVT of the left lower extremity. She was also found to be unstable and in atrial fibrillation with RVR. The patient was admitted to the CCU, started on IV diltiazem drip, digoxin and lovenox. IR was consulted for IVC filter placement and the procedure was done by Dr. Ryan Mace on 05/16/2017. Other problems addressed during her course included: UTI in which a UC grew GNR, she has been treated with IV levaquin; elevated troponin which is likely a result of strain from PE; hyponatremia which was corrected with NS IV hydration. She was transferred to the floor on 05/18/2017 and continued to improve. At this time, she has reached maximum benefit from hospitalization is a stable for discharge. She will be discharged home with family. She should continue eliquis 10mg BID for for anticoagulation and levaquin for UTI. Follow up with PCP in 1-2 weeks. - Time spent with patient Time with patient DS: Greater than 30 minutes Diagnosis - Discharge Diagnosis (1) Atrial fibrillation with RVR Status: Acute (2) Urinary tract infection Status: Acute (3) Elevated troponin Status: Acute (4) HTN (hypertension) Status: Chronic (5) Dementia Status: Acute Discharge Plan - Discharge Data Disposition: Disch To Home/Self Care - Discharge Medications New Apixaban [Eliquis] 10 mg PO BID #60 tablet Atorvastatin [Lipitor] 20 mg PO BEDTIME #30 tablet Continue Potassium Chloride [Klor-Con] 20 meq PO TID Midodrine [Proamatine] 5 mg PO DAILY Fludrocortisone [Florinef] 0.1 mg PO DAILY Travoprost 0.004% Oph Soln [Travatan Z] 1 drop BOTH EYES BEDTIME Gabapentin 100 mg PO BEDTIME Donepezil [Aricept] 5 mg PO BEDTIME Brimonidine/Timolol Oph Soln [Combigan] 1 drop BOTH EYES BID cycloSPORINE OPH EMUL [Restasis] 1 drop BOTH EYES Q12H Ziprasidone Cap [Geodon Cap] 20 mg PO Q6H PRN #30 capsule PRN Reason: Agitation Levothyroxine Tab [Synthroid Tab] 50 mcg PO DAILY Digoxin Tab [Lanoxin Tab] 0.125 mg PO DAILY Multivit-Min/Iron/Folic/Lutein [Centrum Silver Women Tablet] 1 each PO DAILY Cyproheptadine Tab [Periactin Tab] 4 mg PO TID Metoprolol Tartrate Tab [Lopressor Tab] 50 mg PO BID #60 tablet Pantoprazole Tab [Protonix Tab] 40 mg PO DAILY #30 tablet Discontinued amLODIPine [Norvasc] 2.5 mg PO QAM Aspirin EC Tab 81 mg PO QPM Spironolactone [Aldactone] 25 mg PO BID - Follow Up or Referral - Forms/Instructions Exam - Constitutional Vitals: Period Temp Pulse Resp BP Sys/North Pulse Ox Last 24 Hr 96.7 F-97.8 F 55-85 18-20 107-160/51-73 90-98 Discharge Results Procedures and tests throughout hospitalization: Pending Orders 05/15/17 15:20 Blood Culture Stat Labs on day of discharge: Labs from last 24 hours 05/19/17 05/19/17 06:54 06:54 WBC 11.0 RBC 4.12 Hgb 12.1 Hct 36.6 MCV 88.8 MCH 29 MCHC 33.1 RDW 15.0 Plt Count 203 MPV 9.8 Neut % (Auto) 52.6 Lymph % (Auto) 34.5 Morton % (Auto) 8.8 Eos % (Auto) 2.9 Baso % (Auto) 0.1 Neut # (Auto) 5.8 Lymph # (Auto) 3.8 Morton # (Auto) 1.0 H Eos # (Auto) 0.3 Baso # (Auto) 0.0 Immature Gran % 1.1 Nucleated RBC % 0.0 Immature Gran # 0.12 Nucleated RBCs # 0.00 Immature Plt Fraction 0.0 Sodium 133 L Potassium 4.2 Chloride 97 L Carbon Dioxide 28 Anion Gap 12.2 BUN 11 Creatinine 0.80 GFR Calculation 62 BUN/Creatinine Ratio 13.00 Glucose 111 H Calculated Osmolality 265.4 L Calcium 8.7 Magnesium 2.1 Preliminary micro results at discharge 05/15/17 15:20 Blood Culture - Preliminary Blood No growth at 3 days 05/15/17 15:20 Blood Culture - Preliminary Blood No growth at 3 days DS: Provider Date of admission: 05/15/17 12:36 Primary care physician: Cyn Cooley NP Attending physician on admission: Zenaida Kelly MD Consults: 05/15/17 16:16 Consult to Pastoral Services [CONS] Routine Comment: Pastoral Screen: Request Scientific Director Visit Pastoral Screen Source of Request: Patient Family 05/15/17 16:26 Consult to Physical Therapy [CONS] Routine Reason for Physical Therapy: Evaluate and Treat Discharging clinician: Travis WERNER Expected date of discharge: 05/19/17 <Elba Soares - Last Filed: 05/19/17 10:51> Hospital Course - Time spent with patient Time with patient DS: Greater than 30 minutes (35) Diagnosis - Discharge Diagnosis (1) Hypothyroidism Status: Chronic (2) HTN (hypertension) Status: Chronic (3) Dementia Status: Chronic (4) UTI (urinary tract infection) Status: Resolved (5) Left femoral vein DVT Status: Resolved (6) Hypokalemia Status: Chronic Discharge Plan - Discharge Data Condition at Discharge: Stable Discharge Diet: diabetic diet Activity: increase activity as tolerated Weight Bearing at Discharge: weight bear as tolerated Exam - Constitutional General appearance: normal weight - Head Head exam: Present: normocephalic, atraumatic - Eye Eye exam: Present: EOMI Pupils: Present: DOM - ENT ENT exam: Present: normal exam - Neck Neck exam: Present: normal inspection - Respiratory Respiratory exam: Present: clear to auscultation bilaterally. Absent: rhonchi, wheezes - Cardiovascular Cardiovascular exam: Present: regular rate and rhythm - GI/Abdominal GI/Abdominal exam: Present: normal bowel sounds, soft. Absent: tenderness, rebound - Extremities Exam Extremities exam: Present: normal inspection - Back Exam Back exam: Present: normal inspection - Neurological Exam Neurological exam: Present: alert - Psychiatric Psychiatric exam: Present: normal affect, normal mood - Skin Skin exam: Present: warm, intact
[2017-05-19] MEDS: POTASSIUM CHLORIDE 20 MEQ PACK PO SCH (09:21)
[2017-05-19] MEDS: DIGOXIN 0.125 MG TABLET PO SCH (09:21)
[2017-05-19] MEDS: ZINC OXIDE 16% PASTE 57 GM TUBE TOP SCH (09:21)
[2017-05-19] MEDS: ZIPRASIDONE 20 MG CAPSULE PO SCH (09:22)
[2017-05-19] MEDS: PANTOPRAZOLE 40 MG TABLET PO SCH (09:22)
[2017-05-19] MEDS: MULTIVITAMIN (CENTRUM) TABLET PO SCH (09:22)
[2017-05-19] MEDS: APIXABAN 5 MG TABLET PO SCH (09:22)
[2017-05-19] MEDS: METOPROLOL TARTRATE 50 MG TABLET PO SCH (09:23)
[2017-05-19] MEDS: LEVOTHYROXINE 50 MCG TABLET PO SCH (09:23)
[2017-05-19] MEDS: cycloSPORINE OPH EMUL 1 VIAL BOTH EYES SCH (09:23)
[2017-05-19] MEDS: BRIMONIDINE/TIMOLOL OPH SOLN 5 ML BOTTLE BOTH EYES SCH (09:23)
[2017-05-19] MEDS: LEVOFLOXACIN INJ 500 MG in PREMIX 1 EACH IV SCH (11:15)
[2017-05-19 13:48] VITALS: BP 147/68
--- NOTE | 2017-05-25 13:07 | Physician Query Form ---
CLICK EDIT DOCUMENT TO SELECT QUERY ANSWER --> OK --> SIGN Vibha Galan RN Clinical Yeast Pumper W) [phone] (f) [phone] [email or web address] PROVIDERS: Make your selection(s) from the choices in EACH section by typing an "x" and enter comments in the comment section. Please use your independent medical judgment in providing your response. This request does not imply that any particular answer is desired or expected. CLINICAL INDICATORS: (Providers should not edit this section) The below diagnosis was documented in the record, but is not consistently noted in subsequent documentation. Diagnosis: Pulmonary embolus Patient admitted with DVT of the left lower extremity. Based on documentation of "pulmonary embolus" in Dr. Mace's pre-procedure note. Discharge summary states "elevated troponin which is likely a result of strain from PE". Pt. had IVC filter placed. Please clarify the following: (x ) The above diagnosis was monitored, evaluated, and/or treated and is a confirmed diagnosis ( ) The above diagnosis was ruled out ( ) Other, please specify: ( ) Clinically unable to determine COMMENTS: PLEASE ALSO DOCUMENT RESPONSE IN PROGRESS NOTES AND/OR DISCHARGE SUMMARY Use of terms such as suspected, likely, or probable (associated with a specific diagnosis that is being evaluated, monitored, or treated as if it exists) are acceptable and can be restated in the discharge summary if not ruled out. MTDD
== END 2017-05-19 14:15 | disposition home health service (06) | DRG 167 ==
LOC: EDBD → EDUNIT# → N.ED 09:51 → N.EDINP 12:36 → SUATTDRO 12:36 → N.ICU 15:40 → N.5E 05-17 10:11
PROVIDERS: ADMIT Internal Medicine; ATTEND Internal Medicine